=== PATIENT | female | born 1965 | race American Indian/Alaskan Native ===

== ENCOUNTER 2016-09-25 21:28 | Emergency (ER) | payer MEDICARE ==
[2016-09-25] MEDS ORDERED: Ondansetron 4 MG/2 ML SDV IV ONE (21:54)
[2016-09-25] MEDS ORDERED: Morphine 2 MG/ML Syringe IVPUSH ONE (21:54)
--- NOTE | 2016-09-25 21:57 | EDM.PDOC ---
ED HPI GENERAL MEDICAL PROBLEM - General Chief Complaint: Lower Extremity Injury/Pain Stated Complaint: pain ? [id number] Time Seen by Provider: 09/25/16 21:55 Source of Information: Reports: Patient History Limitations: Reports: No Limitations - History of Present Illness INITIAL COMMENTS - FREE TEXT/NARRATIVE: 2 days h/o pain in left stump with fever & chills. 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 Left Knee Pain Score (Numeric/FACES): 7 - Related Data Allergies Allergy/AdvReac Type Severity Reaction Status Date / Time ciprofloxacin [From Cipro] Allergy Hives Verified 09/25/16 21:51 ciprofloxacin HCl Allergy Hives Verified 09/25/16 21:51 [From Cipro] piperacillin sodium Allergy Hives Verified 09/25/16 21:51 [From Zosyn] tazobactam sodium Allergy Hives Verified 09/25/16 21:51 [From Zosyn] Home Meds: Home Meds Pregabalin [Lyrica] 300 mg PO BID 12/05/13 [History] Pioglitazone [Actos] 30 mg PO DAILY 01/01/14 [History] Ibuprofen [Motrin] 800 mg PO Q6H PRN 09/01/14 [History] Past Medical History HEENT History: Reports: None Cardiovascular History: Reports: None Respiratory History: Reports: None Gastrointestinal History: Reports: None Genitourinary History: Reports: None 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 Musculoskeletal History: Reports: Other (See Below) Other Musculoskeletal History: Left Below th e knee Neurological History: Reports: None Psychiatric History: Reports: None Endocrine/Metabolic History: Reports: Diabetes, Type II Hematologic History: Reports: None Immunologic History: Reports: None Oncologic (Cancer) History: Reports: None Dermatologic History: Reports: None - Past Surgical History Musculoskeletal Surgical History: Reports: Amputation Other Musculoskeletal Surgeries/Procedures:: Left BKA Social & Family History - Tobacco Use Smoking Status *Q: Current Every Day Smoker Years of Tobacco use: 10 Packs/Tins Daily: 10 Used Tobacco, but Quit: No Month Tobacco Last Used: august Second Hand Smoke Exposure: No - Caffeine Use Caffeine Use: Reports: Coffee, Soda, Tea - Alcohol Use Days Per Week of Alcohol Use: 0 - Recreational Drug Use Recreational Drug Use: No Drug Use in Last 12 Months: No - Living Situation & Occupation Living situation: Reports: with Family Occupation: Employed Review of Systems - Review of Systems Review Of Systems: ROS reveals no pertinent complaints other than HPI. ED EXAM, GENERAL - Physical Exam Exam: See Below Exam Limited By: No Limitations General Appearance: Alert, WD/WN, Mild Distress, Other (upset) Ears: Hearing Grossly Normal Throat/Mouth: Normal Voice, No Airway Compromise Head: Atraumatic Neck: Non-Tender, Full Range of Motion Respiratory/Chest: No Respiratory Distress Cardiovascular: Regular Rate, Rhythm GI/Abdominal: Soft, Non-Tender Extremities: Other (left stump minimal erythema no lymphangitis, no open sores, mildly tender to palpate) Neurological: Alert, Oriented, Normal Cognition, No Motor/Sensory Deficits Psychiatric: Tearful Skin Exam: Warm, Dry Lymphatic: No Adenopathy Course - Vital Signs Last Recorded V/S: Last Vital Signs Temp 36.5 C 09/25/16 21:39 Pulse 96 09/25/16 21:39 Resp 20 09/25/16 21:39 BP 166/66 H 09/25/16 21:39 Pulse Ox 98 09/25/16 21:39 - Orders/Labs/Meds Orders: Active Orders 24 hr Category Date Time Status CULTURE BLOOD [BC] Stat Lab 09/25/16 22:00 Received Sodium Chloride 0.9% [Normal Saline] 1,000 ml Med 09/25/16 22:00 Active IV ASDIRECTED Medication Orders Sodium Chloride (Normal Saline) 1,000 mls @ 150 mls/hr IV ASDIRECTED MIKE Last Admin: 09/25/16 22:13 Dose: 150 mls/hr Labs: Laboratory Tests 09/25/16 09/25/16 09/25/16 Range/Units 22:00 22:00 22:00 WBC 9.9 (5.0-10.0) 10^3/uL RBC 4.39 (4.2-5.4) 10^6/uL Hgb 12.4 (12.0-16.0) g/dL Hct 39.2 (37.0-47.0) % MCV 89.3 (80-100) fL MCH 28.2 (27.0-34.0) pg MCHC 31.6 L (33.0-35.0) g/dL Plt Count 320 (150-450) 10^3/uL Neut % (Auto) 51.5 (42.2-75.2) % Lymph % (Auto) 37.0 (20.5-50.1) % [place] % (Auto) 9.0 H (2-8) % Eos % (Auto) 2.2 (1.0-3.0) % Baso % (Auto) 0.3 (0.0-1.0) % Sodium 142 (135-145) mmol/L Potassium 3.7 (3.6-5.0) mmol/L Chloride 108 (101-111) mmol/L Carbon Dioxide 23.0 (21.0-31.0) mmol/L Anion Gap 14.7 BUN 7 (7-18) mg/dL Creatinine 0.7 (0.6-1.3) mg/dL Est Cr Clr Drug Dosing 69.83 mL/min Estimated GFR (MDRD) > 60 BUN/Creatinine Ratio 10.00 Glucose 148 H (74-105) mg/dL Lactic Acid 1.4 (0.5-2.2) mmol/L Calcium 8.9 (8.4-10.2) mg/dl Total Bilirubin 0.6 (0.2-1.0) mg/dL AST 28 (10-42) IU/L ALT 34 (10-60) IU/L Alkaline Phosphatase 123 H (42-121) IU/L Total Protein 6.3 L (6.7-8.2) g/dl Albumin 3.5 (3.2-5.5) g/dl Globulin 2.8 Albumin/Globulin Ratio 1.25 Meds: Medications Generic Name Dose Route Start Last Admin Trade Name Freq PRN Reason Stop Dose Admin Sodium Chloride 1,000 mls @ 150 mls/hr 09/25/16 22:00 09/25/16 22:13 Normal Saline IV 150 mls/hr ASDIRECTED MIKE Administration Discontinued Medications Generic Name Dose Route Start Last Admin Trade Name Freq PRN Reason Stop Dose Admin Clindamycin Phosphate 900 mg/ 106 mls @ 200 mls/hr 09/25/16 22:50 09/25/16 23 :04 Sodium Chloride IV 09/25/16 23:21 200 mls/hr ONETIME ONE Administration Morphine Sulfate 2 mg 09/25/16 21:54 09/25/16 22:15 Morphine IVPUSH 09/25/16 21:55 2 mg ONETIME ONE Administration Ondansetron HCl 4 mg 09/25/16 21:54 09/25/16 22:15 Zofran IV 09/25/16 21:55 4 mg ONETIME ONE Administration Departure - Departure Time of Disposition: 23:43 Disposition: Home, Self-Care 01 Condition: Good Clinical Impression: Amputation stump infection - Discharge Information Instructions: Stump and Prosthesis Care Forms: ED Department Discharge Additional Instructions: 1) continue home meds 2) follow up at clinic or [facility] if there is any change or concern rx given; clindamycin 150mg qid x 40 vicodin 5/325mg bid prn x 12 - My Orders Last 24 Hours: My Active Orders 09/25/16 22:00 CULTURE BLOOD [BC] Stat Sodium Chloride 0.9% [Normal Saline] 1,000 ml IV ASDIRECTED - Assessment/Plan Last 24 Hours: My Active Orders 09/25/16 22:00 CULTURE BLOOD [BC] Stat Sodium Chloride 0.9% [Normal Saline] 1,000 ml IV ASDIRECTED
[2016-09-25] MEDS ORDERED: Sodium Chloride 0.9% 1,000 ML IV SCH (22:00)
[2016-09-25 22:37] LABS: CHLORIDE,CL 108 mmol/L (101-111); SODIUM,NA 142 mmol/L (135-145)
[2016-09-25] MEDS ORDERED: Clindamycin Phosphate 900 MG in Sodium Chloride 0.9% 100 ML IV ONE (22:50)
[2016-09-26 01:12] VITALS: BP 120/60
== END 2016-09-25 23:59 | disposition home or self-care (01) ==
LOC: EDBD → DL.ED 21:28
DX: T87.44 Infection of amputation stump, left lower extremity (principal); E11.9 Type 2 diabetes mellitus without complications; F17.210 Nicotine dependence, cigarettes, uncomplicated; Z79.899 Other long term (current) drug therapy; Z88.1 Allergy status to other antibiotic agents; Z88.8 Allergy status to other drugs, medicaments and biological substances; Z79.84 Long term (current) use of oral hypoglycemic drugs
CPT/HCPCS: 36415; 80053; 83605; 85025; 87040; 96365; 96367; 96375; 99283; J2270; J2405; J7030; J7050; 99284; S0077

== ENCOUNTER 2016-10-14 14:45 | Emergency (ER) | payer MEDICARE, OTHER, MEDICAID ==
[2016-10-14 15:11] VITALS: BP 159/67
== END 2016-10-14 15:25 | disposition left against medical advice (07) ==
LOC: EDBD → DL.ED 14:45
DX: Z53.21 Procedure and treatment not carried out due to patient leaving prior to being seen by health care provider (principal)

== ENCOUNTER 2016-10-21 21:49 | Emergency (ER) | payer MEDICAID, MEDICARE, OTHER ==
[2016-10-21] MEDS ORDERED: HYDROmorphone 1 MG/ML Syringe IVPUSH ONE (22:33)
[2016-10-21] MEDS ORDERED: Ondansetron 4 MG/2 ML SDV IV ONE (22:33)
[2016-10-21 22:42] LABS: CHLORIDE,CL 109 mmol/L (101-111); SODIUM,NA 143 mmol/L (135-145)
[2016-10-22] MEDS ORDERED: Amoxicillin/Clavulanate K 875-125 MG Tab PO ONE (00:30)
--- NOTE | 2016-10-22 00:30 | EDM.PDOC ---
ED HPI GENERAL MEDICAL PROBLEM - General Chief Complaint: General Stated Complaint: DIABETIC PROBLEMS,COMING BY AMBULANCE Time Seen by Provider: 10/21/16 21:57 Source of Information: Reports: Patient History Limitations: Reports: No Limitations - History of Present Illness INITIAL COMMENTS - FREE TEXT/NARRATIVE: c/o pain to left stump. 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 Has 2 pressure ulcers from prosthesis not fitting correctly with increase in weight. Notes still wearing prothesis. and walking. Has increased pain.Was seen in clinic today and appointment scheduled with orthotics for refitting. [place] chilled tonight. 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 Lower Knee Pain Score (Numeric/FACES): 7 - Related Data Allergies Allergy/AdvReac Type Severity Reaction Status Date / Time ciprofloxacin [From Cipro] Allergy Hives Verified 10/21/16 22:09 ciprofloxacin HCl Allergy Hives Verified 10/21/16 22:09 [From Cipro] piperacillin sodium Allergy Hives Verified 10/21/16 22:09 [From Zosyn] tazobactam sodium Allergy Hives Verified 10/21/16 22:09 [From Zosyn] Home Meds: Home Meds Pregabalin [Lyrica] 300 mg PO BID 12/05/13 [History] Pioglitazone [Actos] 30 mg PO DAILY 01/01/14 [History] Ibuprofen [Motrin] 800 mg PO Q6H PRN 09/01/14 [History] Past Medical History HEENT History: Reports: None Cardiovascular History: Reports: None Respiratory History: Reports: None Gastrointestinal History: Reports: None Genitourinary History: Reports: None 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 Musculoskeletal History: Reports: Other (See Below) Other Musculoskeletal History: Left Below th e knee Neurological History: Reports: None Psychiatric History: Reports: None Endocrine/Metabolic History: Reports: Diabetes, Type II Hematologic History: Reports: None Immunologic History: Reports: None Oncologic (Cancer) History: Reports: None Dermatologic History: Reports: None - Past Surgical History Musculoskeletal Surgical History: Reports: Amputation Other Musculoskeletal Surgeries/Procedures:: Left BKA Social & Family History - Tobacco Use Smoking Status *Q: Current Every Day Smoker Years of Tobacco use: 18 Packs/Tins Daily: 6 Used Tobacco, but Quit: No Month Tobacco Last Used: august Second Hand Smoke Exposure: No - Caffeine Use Caffeine Use: Reports: Coffee, Soda, Tea - Alcohol Use Days Per Week of Alcohol Use: 0 - Recreational Drug Use Recreational Drug Use: No Drug Use in Last 12 Months: No - Living Situation & Occupation Living situation: Reports: with Family Occupation: Employed ED ROS GENERAL - Review of Systems Review Of Systems: See Below Constitutional: Reports: Chills HEENT: Reports: No Symptoms Respiratory: Reports: No Symptoms Cardiovascular: Reports: No Symptoms GI/Abdominal: Reports: No Symptoms : Reports: No Symptoms Musculoskeletal: Reports: Leg Pain (left BKA) Skin: Reports: Wound (pressure ulcer at base of stump another starting above knee) ED EXAM, GENERAL - Physical Exam Exam: See Below Exam Limited By: No Limitations General Appearance: Alert, Anxious, Mild Distress, Obese Eye Exam: Bilateral Eye: EOMI Ears: Normal External Exam Nose: Normal Inspection Throat/Mouth: Normal Inspection, Normal Voice Head: Atraumatic, Normocephalic Neck: Normal Inspection. No: Lymphadenopathy (L), Lymphadenopathy (R) Respiratory/Chest: No Respiratory Distress, Lungs Clear, Normal Breath Sounds Cardiovascular: Normal Peripheral Pulses, Regular Rate, Rhythm GI/Abdominal: Normal Bowel Sounds, Soft, Non-Tender Extremities: Leg Pain (BKA left. dime size pressure ulcer base of stump, clean no drainage mild erythematous base, mild swelling to stump. 3mm pressure ulcer to later edge above knee at edge of prothesis. ). No: Normal Inspection Neurological: Alert, Oriented, Normal Cognition, No Motor/Sensory Deficits Skin Exam: Warm, Dry, Erythema (left BKA), Increased Warmth (slight), Wound/ Incision (above). No: Intact, Pallor Course - Vital Signs Last Recorded V/S: Last Vital Signs Temp 96.4 F 10/22/16 00:51 Pulse 70 10/22/16 00:51 Resp 18 10/22/16 00:51 BP 130/59 L 10/22/16 00:51 Pulse Ox 98 10/22/16 00:51 - Orders/Labs/Meds Labs: Laboratory Tests 10/21/16 10/21/16 10/21/16 Range/Units 22:10 22:10 22:10 WBC 9.2 (5.0-10.0) 10^3/uL RBC 4.36 (4.2-5.4) 10^6/uL Hgb 12.4 (12.0-16.0) g/dL Hct 38.5 (37.0-47.0) % MCV 88.3 (80-100) fL MCH 28.4 (27.0-34.0) pg MCHC 32.2 L (33.0-35.0) g/dL Plt Count 334 (150-450) 10^3/uL Neut % (Auto) 50.5 (42.2-75.2) % Lymph % (Auto) 39.0 (20.5-50.1) % [place] % (Auto) 7.8 (2-8) % Eos % (Auto) 2.5 (1.0-3.0) % Baso % (Auto) 0.2 (0.0-1.0) % Sodium 143 (135-145) mmol/L Potassium 3.6 (3.6-5.0) mmol/L Chloride 109 (101-111) mmol/L Carbon Dioxide 23.0 (21.0-31.0) mmol/L Anion Gap 14.6 BUN 8 (7-18) mg/dL Creatinine 0.6 (0.6-1.3) mg/dL Est Cr Clr Drug Dosing 80.57 mL/min Estimated GFR (MDRD) > 60 BUN/Creatinine Ratio 13.33 Glucose 107 H (74-105) mg/dL Lactic Acid 1.0 (0.5-2.2) mmol/L Calcium 8.8 (8.4-10.2) mg/dl Total Bilirubin 0.5 (0.2-1.0) mg/dL AST 28 (10-42) IU/L ALT 29 (10-60) IU/L Alkaline Phosphatase 111 (42-121) IU/L C-Reactive Protein (0.0-1.3) mg/dL Total Protein 7.1 (6.7-8.2) g/dl Albumin 3.7 (3.2-5.5) g/dl Globulin 3.4 Albumin/Globulin Ratio 1.09 Amylase 49 (28-100) U/L Lipase 31 (22-51) U/L Urine Color (YELLOW) Urine Appearance (CLEAR) Urine pH (5.0-9.0) Ur Specific [place] (1.005-1.030) Urine Protein (NEGATIVE) Urine Glucose (UA) (NEGATIVE) Urine Ketones (NEGATIVE) Urine Occult Blood (NEGATIVE) Urine Nitrite (NEGATIVE) Urine Bilirubin (NEGATIVE) Urine Urobilinogen (0.2-1.0) mg/dL Ur Leukocyte Esterase (NEGATIVE) Urine RBC /HPF Urine WBC (0-5/HPF) /HPF Ur Epithelial Cells /HPF Urine Bacteria (0-FEW/HPF) /HPF Urine Mucus /LPF Urine Trichomonas (0/HPF) /HPF 10/21/16 10/21/16 Range/Units 22:10 22:27 WBC (5.0-10.0) 10^3/uL RBC (4.2-5.4) 10^6/uL Hgb (12.0-16.0) g/dL Hct (37.0-47.0) % MCV (80-100) fL MCH (27.0-34.0) pg MCHC (33.0-35.0) g/dL Plt Count (150-450) 10^3/uL Neut % (Auto) (42.2-75.2) % Lymph % (Auto) (20.5-50.1) % [place] % (Auto) (2-8) % Eos % (Auto) (1.0-3.0) % Baso % (Auto) (0.0-1.0) % Sodium (135-145) mmol/L Potassium (3.6-5.0) mmol/L Chloride (101-111) mmol/L Carbon Dioxide (21.0-31.0) mmol/L Anion Gap BUN (7-18) mg/dL Creatinine (0.6-1.3) mg/dL Est Cr Clr Drug Dosing mL/min Estimated GFR (MDRD) BUN/Creatinine Ratio Glucose (74-105) mg/dL Lactic Acid (0.5-2.2) mmol/L Calcium (8.4-10.2) mg/dl Total Bilirubin (0.2-1.0) mg/dL AST (10-42) IU/L ALT (10-60) IU/L Alkaline Phosphatase (42-121) IU/L C-Reactive Protein 0.8 (0.0-1.3) mg/dL Total Protein (6.7-8.2) g/dl Albumin (3.2-5.5) g/dl Globulin Albumin/Globulin Ratio Amylase (28-100) U/L Lipase (22-51) U/L Urine Color Yellow (YELLOW) Urine Appearance Slightly cloudy (CLEAR) Urine pH 6.0 (5.0-9.0) Ur Specific [place] 1.010 (1.005-1.030) Urine Protein Negative (NEGATIVE) Urine Glucose (UA) Negative (NEGATIVE) Urine Ketones Negative (NEGATIVE) Urine Occult Blood Negative (NEGATIVE) Urine Nitrite Negative (NEGATIVE) Urine Bilirubin Negative (NEGATIVE) Urine Urobilinogen 0.2 (0.2-1.0) mg/dL Ur Leukocyte Esterase Moderate H (NEGATIVE) Urine RBC 0-5 /HPF Urine WBC 10-20 H (0-5/HPF) /HPF Ur Epithelial Cells Few /HPF Urine Bacteria Rare (0-FEW/HPF) /HPF Urine Mucus Few H /LPF Urine Trichomonas Present H (0/HPF) /HPF Meds: Medications Discontinued Medications Generic Name Dose Route Start Last Admin Trade Name Freq PRN Reason Stop Dose Admin Amoxicillin/Clavulanate Potassium 1 tab 10/22/16 00:30 10/22/16 00:47 Augmentin 875 Mg/125 Mg PO 10/22/16 00:31 1 tab ONETIME ONE Administration Hydromorphone HCl 1 mg 10/21/16 22:33 10/21/16 22:47 Dilaudid IVPUSH 10/21/16 22:34 1 mg ONETIME ONE Administration Ondansetron HCl 4 mg 10/21/16 22:33 10/21/16 22:47 Zofran IV 10/21/16 22:34 4 mg ONETIME ONE Administration Oxycodone/Acetaminophen Confirm 10/22/16 00:43 10/22/16 00:48 Percocet 325-5 Mg Administered 10/22/16 00:44 Not Given Dose 2 tab .ROUTE .STK-MED ONE Oxycodone/Acetaminophen 2 tab 10/22/16 00:43 Percocet 325-5 Mg PO 10/22/16 00:44 .STK-MED ONE Departure - Departure Time of Disposition: 00:19 Disposition: Home, Self-Care 01 Condition: Fair Clinical Impression: Pressure ulcer of left leg, stage 2, UTI, Urinary tract infectious disease, Stump pain - Discharge Information Instructions: Stump and Prosthesis Care, How to Prevent Pressure Injuries Forms: ED Department Discharge Additional Instructions: clinic follow up as scheduled percocet 5/325 one every 6 hours as needed for severe pain augmentin 875 one twice daily for one week for UTI avoid pressure on stump area. use walker or crutches when able until prosthesis re fitted
[2016-10-22] MEDS ORDERED: Acetaminophen/oxyCODONE 325-5 MG Tab ONE (00:43)
[2016-10-22] MEDS ORDERED: Acetaminophen/oxyCODONE 325-5 MG Tab PO ONE (00:43)
[2016-10-22 01:00] VITALS: BP 130/59
== END 2016-10-22 00:51 | disposition home or self-care (01) ==
LOC: EDBD → DL.ED 21:49
DX: L89.892 Pressure ulcer of other site, stage 2 (principal); N39.0 Urinary tract infection, site not specified; E11.9 Type 2 diabetes mellitus without complications; Z89.512 Acquired absence of left leg below knee; F17.210 Nicotine dependence, cigarettes, uncomplicated; Z79.899 Other long term (current) drug therapy; Z88.1 Allergy status to other antibiotic agents; Z88.8 Allergy status to other drugs, medicaments and biological substances
CPT/HCPCS: 36415; 80053; 81001; 82150; 83605; 83690; 85025; 86140; 87040; 87070; 87077; 87086; 87088; 96374; 96375; 99284; A9270; J1170; J2405

== ENCOUNTER 2017-04-11 16:45 | Emergency (ER) | payer MEDICAID, MEDICARE ==
[2017-04-11 18:20] VITALS: BP 152/67
--- NOTE | 2017-04-11 19:30 | EDM.PDOC ---
ED HPI GENERAL MEDICAL PROBLEM - General Chief Complaint: Lower Extremity Injury/Pain Stated Complaint: SICK [id number] Time Seen by Provider: 04/11/17 19:26 Source of Information: Reports: Patient History Limitations: Reports: No Limitations - History of Present Illness INITIAL COMMENTS - FREE TEXT/NARRATIVE: twisted last night and it's her good leg since the other one has a prosthesis, also been having F/C today but refused to have flu swab since it goes into her nose and she doesn't like it. Right Leg Pain Score (Numeric/FACES): 8 - Related Data Allergies Allergy/AdvReac Type Severity Reaction Status Date / Time ciprofloxacin [From Cipro] Allergy Hives Verified 04/11/17 18:12 ciprofloxacin HCl Allergy Hives Verified 04/11/17 18:12 [From Cipro] piperacillin sodium Allergy Hives Verified 04/11/17 18:12 [From Zosyn] tazobactam sodium Allergy Hives Verified 04/11/17 18:12 [From Zosyn] Home Meds: Home Meds Pregabalin [Lyrica] 300 mg PO BID 12/05/13 [History] Pioglitazone [Actos] 30 mg PO DAILY 01/01/14 [History] Ibuprofen [Motrin] 800 mg PO Q6H PRN 09/01/14 [History] metFORMIN [Glucophage XR] 500 mg PO DAILY 04/11/17 [History] Past Medical History HEENT History: Reports: None Cardiovascular History: Reports: None Respiratory History: Reports: None Gastrointestinal History: Reports: None Genitourinary History: Reports: None 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 Musculoskeletal History: Reports: Other (See Below) Other Musculoskeletal History: Left Below th e knee Neurological History: Reports: None Psychiatric History: Reports: None Endocrine/Metabolic History: Reports: Diabetes, Type II Hematologic History: Reports: None Immunologic History: Reports: None Oncologic (Cancer) History: Reports: None Dermatologic History: Reports: None - Past Surgical History Musculoskeletal Surgical History: Reports: Amputation Other Musculoskeletal Surgeries/Procedures:: Left BKA Social & Family History - Family History Family Medical History: Noncontributory - Tobacco Use Smoking Status *Q: Current Every Day Smoker Years of Tobacco use: 15 Packs/Tins Daily: 0.2 Used Tobacco, but Quit: No Month Tobacco Last Used: august Second Hand Smoke Exposure: No - Caffeine Use Caffeine Use: Reports: Coffee, Soda - Alcohol Use Days Per Week of Alcohol Use: 0 - Recreational Drug Use Recreational Drug Use: No Drug Use in Last 12 Months: No - Living Situation & Occupation Living situation: Reports: with Family Occupation: Employed Review of Systems - Review of Systems Review Of Systems: ROS reveals no pertinent complaints other than HPI. ED EXAM, GENERAL - Physical Exam Exam: See Below Exam Limited By: No Limitations General Appearance: Alert, WD/WN, Mild Distress, Moderate Distress, Other ( tearful) Eye Exam: Bilateral Eye: PERRL (pupils ess ER @ 4mm) Ears: Hearing Grossly Normal Throat/Mouth: Normal Voice, No Airway Compromise Head: Atraumatic Neck: Non-Tender, Full Range of Motion Respiratory/Chest: No Respiratory Distress Cardiovascular: Regular Rate, Rhythm GI/Abdominal: Soft, Non-Tender Neurological: Alert, Oriented, Normal Cognition, Other (left prosthesis) Psychiatric: Flat Affect, Tearful Skin Exam: Warm, Dry, Normal Color Lymphatic: No Adenopathy Course - Vital Signs Last Recorded V/S: Last Vital Signs Temp 36.3 C 04/11/17 18:15 Pulse 84 04/11/17 18:15 Resp 18 04/11/17 18:15 BP 152/67 H 04/11/17 18:15 Pulse Ox 99 04/11/17 18:15 - Orders/Labs/Meds Orders: Active Orders 24 hr Category Date Time Status Ankle Min 3V Rt [CR] Urgent Exams 04/11/17 19:25 Taken Meds: Medications Discontinued Medications Generic Name Dose Route Start Last Admin Trade Name Freq PRN Reason Stop Dose Admin Hydrocodone Bitart/Acetaminophen 1 tab 04/11/17 20:05 [place] 325-10 Mg PO 04/11/17 20:06 ONETIME ONE - Re-Assessments/Exams Free Text/Narrative Re-Assessment/Exam: 04/11/17 20:06 results discussed with pt. Departure - Departure Time of Disposition: 20:07 Disposition: Home, Self-Care 01 Condition: Good Clinical Impression: Ankle sprain Qualifiers: Encounter type: initial encounter Involved ligament of ankle: tibiofibular ligament Laterality: right Qualified Code(s): S93.431A - Sprain of tibiofibular ligament of right ankle, initial encounter - Discharge Information Instructions: Ankle Sprain, [id number] Forms: ED Department Discharge Additional Instructions: 1) wear [place] for comfort 2) elevate leg as much as possible next 3 to 4 days 3) see clinic for MRI SCAN if not significantly better by Wednesday rx given; vicodin 5/325mg bid prn x 12 - My Orders Last 24 Hours: My Active Orders 04/11/17 19:25 Ankle Min 3V Rt [CR] Urgent - Assessment/Plan Last 24 Hours: My Active Orders 04/11/17 19:25 Ankle Min 3V Rt [CR] Urgent
[2017-04-11] MEDS ORDERED: Acetaminophen/HYDROcodone 325-10 MG Tab PO ONE (20:05)
== END 2017-04-11 20:25 | disposition home or self-care (01) ==
LOC: DL.ED 16:45 → EDBD 16:45 → DL.ED 20:25
DX: S93.431A Sprain of tibiofibular ligament of right ankle, initial encounter (principal); E11.9 Type 2 diabetes mellitus without complications; F17.210 Nicotine dependence, cigarettes, uncomplicated; Z88.1 Allergy status to other antibiotic agents; Z88.8 Allergy status to other drugs, medicaments and biological substances; Z79.899 Other long term (current) drug therapy; Z79.84 Long term (current) use of oral hypoglycemic drugs; X50.1XXA Overexertion from prolonged static or awkward postures, initial encounter
CPT/HCPCS: 73610; 99283; A9270

== ENCOUNTER 2017-04-21 17:17 | Emergency (ER) | payer MEDICARE, MEDICAID ==
[2017-04-21 17:43] VITALS: BP 159/56
--- NOTE | 2017-04-21 19:17 | EDM.PDOC ---
ED HPI GENERAL MEDICAL PROBLEM - General Chief Complaint: Upper Extremity Injury/Pain Stated Complaint: FELL AND HURT SHOULDER, [id number] Time Seen by Provider: 04/21/17 19:10 Source of Information: Reports: Patient History Limitations: Reports: No Limitations - History of Present Illness INITIAL COMMENTS - FREE TEXT/NARRATIVE: C/O severe pain noted,slipped and fell on ice around 330 today. Pain left upper arm and shoulder, difficult to move arm. Left knee pain from landing on knee and prosthesis. Also pain right ankle. Reports previous injury to ankle and was told needed pins but did not follow up as would have limited being able to get around since prosthesis on other extremity. 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: Musculoskeletal History: Reports: Amputation Endocrine/Metabolic History: Reports: Diabetes, Type I - Past Surgical History Musculoskeletal Surgical History: Reports: Amputation Social & Family History - Tobacco Use Smoking Status *Q: Unknown Ever Smoked Second Hand Smoke Exposure: No - Caffeine Use Caffeine Use: Reports: None Review of Systems - Review of Systems Review Of Systems: See Below Constitutional: Reports: No Symptoms Eyes: Reports: No Symptoms Ears: Reports: No Symptoms Nose: Reports: No Symptoms Mouth/Throat: Reports: No Symptoms Respiratory: Reports: No Symptoms Cardiovascular: Reports: No Symptoms GI/Abdominal: Reports: No Symptoms Genitourinary: Reports: No Symptoms Musculoskeletal: Reports: Shoulder Pain (left), Arm Pain (left upper), Leg Pain (left below knee), Joint Pain (right ankle) Skin: Reports: No Symptoms Neurological: Reports: No Symptoms ED EXAM, GENERAL - Physical Exam Exam: See Below Exam Limited By: No Limitations General Appearance: Alert, Mild Distress Eye Exam: Bilateral Eye: EOMI Ears: Normal External Exam Nose: Normal Inspection Throat/Mouth: Normal Inspection, Normal Voice Head: Atraumatic, Normocephalic Neck: Normal Inspection, Full Range of Motion. No: Tender Lateral, Tender Midline Respiratory/Chest: No Respiratory Distress, Lungs Clear, Normal Breath Sounds Cardiovascular: Normal Peripheral Pulses, Regular Rate, Rhythm Peripheral Pulses: 2+: Radial (L) GI/Abdominal: Soft Back Exam: No: Paraspinal Tenderness, Vertebral Tenderness Extremities: Arm Pain (limited ROM, no gross deformity, tender to palpation upper arm and shoulder, ), Leg Pain (right ankle tender medially, no deformity, no bruising minimal swelling), Limited Range of Motion (l upper arm/ shoulder), Other (light bruise medial left knee above prosthesis, no gross deformity right knee.). No: Normal Range of Motion Neurological: Alert, Oriented, Normal Cognition Psychiatric: Normal Affect Skin Exam: Warm, Dry, Intact, Normal Color Course - Vital Signs Last Recorded V/S: Last Vital Signs Temp 97.7 F 04/21/17 17:42 Pulse 86 04/21/17 17:42 Resp 18 04/21/17 17:42 BP 159/56 H 04/21/17 17:42 Pulse Ox 97 04/21/17 17:42 - Orders/Labs/Meds Meds: Medications Discontinued Medications Generic Name Dose Route Start Last Admin Trade Name Alisa PRN Reason Stop Dose Admin Hydrocodone Bitart/Acetaminophen Confirm 04/21/17 21:11 [place] 325-10 Mg Administered 04/21/17 21:12 Dose 2 tab .ROUTE .STK-MED ONE Oxycodone/Acetaminophen 1 tab 04/21/17 19:48 04/21/17 20:17 Percocet 325-5 Mg PO 04/21/17 19:49 1 tab ONETIME ONE Administration - Radiology Interpretation Free Text/Narrative:: right knee negative right ankle negative left shoulder; negaive left humerus: Questionable avulsion fracture of greater tuberosity CT left shoulder fractureof humeral head involving greater tuberosity - Re-Assessments/Exams Free Text/Narrative Re-Assessment/Exam: 04/21/17 19:56 Patient reports birthdate as [birth year], Provides ID that notes birthdate as . Departure - Departure Time of Disposition: 21:03 Disposition: Home, Self-Care 01 Condition: Fair Clinical Impression: Fracture of humeral head, closed Qualifiers: Encounter type: initial encounter Laterality: left Qualified Code(s): S42.292A - Other displaced fracture of upper end of left humerus, initial encounter for closed fracture - Discharge Information Instructions: How to Use a Sling, [id number], Shoulder Pain, [id number] Forms: ED Department Discharge Care Plan Goals: hydrocodone 10/325 one every 6 hours as needed for severe pain may take ibuprofen 600mg with food every 6 hours as needed moderate pain wear sling Ortho follow up in clinic Wednesday at [facility], call tomorrow to get appointment with Dr. Hill [phone] ice pack jared spencer
[2017-04-21] MEDS ORDERED: Acetaminophen/oxyCODONE 325-5 MG Tab PO ONE (19:48)
[2017-04-21] MEDS ORDERED: Acetaminophen/HYDROcodone 325-10 MG Tab ONE (21:11)
== END 2017-04-21 21:23 | disposition home or self-care (01) ==
LOC: DL.ED 17:17 → EDUNIT# 17:17 → DL.ED 21:23
DX: S42.292A Other displaced fracture of upper end of left humerus, initial encounter for closed fracture (principal); E10.9 Type 1 diabetes mellitus without complications; Z88.8 Allergy status to other drugs, medicaments and biological substances; Z79.84 Long term (current) use of oral hypoglycemic drugs; W00.9XXA Unspecified fall due to ice and snow, initial encounter
CPT/HCPCS: 73030; 73060; 73200; 73560; 73610; 99284; A9270

== ENCOUNTER 2017-08-05 20:12 | Emergency (ER) | payer MEDICARE, MEDICAID ==
[2017-08-05 20:25] VITALS: BP 133/58
[2017-08-05] MEDS ORDERED: Clindamycin HCl 150 MG Cap PO ONE (21:42)
[2017-08-05] MEDS ORDERED: Acetaminophen/HYDROcodone 325-10 MG Tab PO ONE (21:42)
--- NOTE | 2017-08-05 21:51 | EDM.PDOC ---
ED HPI GENERAL MEDICAL PROBLEM - General Chief Complaint: Lower Extremity Injury/Pain Stated Complaint: [id number] INFECTION IN TOES Time Seen by Provider: 08/05/17 21:45 Source of Information: Reports: Patient History Limitations: Reports: No Limitations - History of Present Illness INITIAL COMMENTS - FREE TEXT/NARRATIVE: c/o pain in toes of right foot past few days and not getting better. has appt' with test eng in few weeks. also been having women problems was being f/u @ [facility] with miri Canas but she left. Right 1-[place]ux Pain Score (Numeric/FACES): 8 - Related Data Allergies Allergy/AdvReac Type Severity Reaction Status Date / Time ciprofloxacin [From Cipro] Allergy Hives Verified 08/05/17 20:25 ciprofloxacin HCl Allergy Hives Verified 04/11/17 18:12 [From Cipro] piperacillin [From Zosyn] Allergy Cannot Unverified 04/21/17 17:40 Remember piperacillin sodium Allergy Hives Verified 08/05/17 20:25 [From Zosyn] tazobactam [From Zosyn] Allergy Cannot Unverified 04/21/17 17:40 Remember tazobactam sodium Allergy Hives Verified 08/05/17 20:25 [From Zosyn] Home Meds: Home Meds Pregabalin [Lyrica] 300 mg PO BID 12/05/13 [History] Pioglitazone [Actos] 30 mg PO DAILY 01/01/14 [History] Ibuprofen [Motrin] 800 mg PO Q6H PRN 09/01/14 [History] metFORMIN [Glucophage] 500 mg PO BID 04/21/17 [History] Past Medical History HEENT History: Reports: None Cardiovascular History: Reports: None Respiratory History: Reports: None Gastrointestinal History: Reports: None Genitourinary History: Reports: None [employer]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: Musculoskeletal History: Reports: Amputation Other Musculoskeletal History: Left Below th e knee Neurological History: Reports: None Psychiatric History: Reports: None Endocrine/Metabolic History: Reports: Diabetes, Type I Hematologic History: Reports: None Immunologic History: Reports: None Oncologic (Cancer) History: Reports: None Dermatologic History: Reports: None - Past Surgical History Musculoskeletal Surgical History: Reports: Amputation Social & Family History - Family History Family Medical History: Noncontributory - Tobacco Use Smoking Status *Q: Current Every Day Smoker Years of Tobacco use: 10 Packs/Tins Daily: 0.2 Second Hand Smoke Exposure: No - Caffeine Use Caffeine Use: Reports: None - Recreational Drug Use Recreational Drug Use: No - Living Situation & Occupation Living situation: Reports: with Family Occupation: Employed Review of Systems - Review of Systems Review Of Systems: ROS reveals no pertinent complaints other than HPI. ED EXAM, GENERAL - Physical Exam Exam: See Below Exam Limited By: No Limitations General Appearance: Alert, WD/WN, Mild Distress, Other (distraught) Ears: Hearing Grossly Normal Throat/Mouth: Normal Voice, No Airway Compromise Head: Atraumatic Neck: Non-Tender, Full Range of Motion Respiratory/Chest: No Respiratory Distress Cardiovascular: Regular Rate, Rhythm GI/Abdominal: Soft, Non-Tender Extremities: Other (right toes mildly inflammed no cellulitis/lymphangitis, nails deformed) Neurological: Alert, Oriented, Normal Cognition, Normal Gait, No Motor/Sensory Deficits Psychiatric: Flat Affect, Tearful Skin Exam: Warm, Dry, Normal Color Lymphatic: No Adenopathy Course - Vital Signs Last Recorded V/S: Last Vital Signs Temp 36.4 C 08/05/17 20:20 Pulse 112 H 08/05/17 20:20 Resp 18 08/05/17 20:20 BP 133/58 L 08/05/17 20:20 Pulse Ox 96 08/05/17 20:20 - Orders/Labs/Meds Orders: Active Orders 24 hr Category Date Time Status Acetaminophen/HYDROcodone [[place] 325-10 MG] Med 08/05/17 21:42 Once 1 tab PO ONETIME ONE Clindamycin HCl [Cleocin] Med 08/05/17 21:42 Once 150 mg PO ONETIME ONE Medication Orders Hydrocodone Bitart/Acetaminophen ([place] 325-10 Mg) 1 tab PO ONETIME ONE Stop: 08/05/17 21:43 Clindamycin HCl (Cleocin) 150 mg PO ONETIME ONE Stop: 08/05/17 21:43 Meds: Medications Generic Name Dose Route Start Last Admin Trade Name Freq PRN Reason Stop Dose Admin Hydrocodone Bitart/Acetaminophen 1 tab 08/05/17 21:42 [place] 325-10 Mg PO 08/05/17 21:43 ONETIME ONE Clindamycin HCl 150 mg 08/05/17 21:42 Cleocin PO 08/05/17 21:43 ONETIME ONE Departure - Departure Time of Disposition: 21:50 Disposition: Home, Self-Care 01 Condition: Good Clinical Impression: Toe infection - Discharge Information Referrals: Sarah Lambert MD [Primary Care Provider] - Additional Instructions: 1) see clinic tomorrow for female problem 2) see test eng for toe nail problem rx given; clindamycin 150mg qid x 40 - My Orders Last 24 Hours: My Active Orders 08/05/17 21:42 Acetaminophen/HYDROcodone [[place] 325-10 MG] 1 tab PO ONETIME ONE Clindamycin HCl [Cleocin] 150 mg PO ONETIME ONE - Assessment/Plan Last 24 Hours: My Active Orders 08/05/17 21:42 Acetaminophen/HYDROcodone [[place] 325-10 MG] 1 tab PO ONETIME ONE Clindamycin HCl [Cleocin] 150 mg PO ONETIME ONE
== END 2017-08-05 21:56 | disposition home or self-care (01) ==
LOC: DL.ED 20:12
DX: L08.9 Local infection of the skin and subcutaneous tissue, unspecified (principal); E10.9 Type 1 diabetes mellitus without complications; F17.210 Nicotine dependence, cigarettes, uncomplicated; Z88.8 Allergy status to other drugs, medicaments and biological substances; Z88.1 Allergy status to other antibiotic agents
CPT/HCPCS: 99283; A9270

== ENCOUNTER 2017-10-02 20:52 | Observation (INO) | payer MEDICARE, MEDICAID ==
[2017-10-02] MEDS ORDERED: Meclizine 12.5 MG Tab PO ONE (20:57)
[2017-10-02] MEDS ORDERED: Ondansetron 4 MG/2 ML SDV IV ONE (20:57)
--- NOTE | 2017-10-02 21:03 | EDM.PDOC ---
ED HPI GENERAL MEDICAL PROBLEM - General Chief Complaint: Syncope Stated Complaint: FAINTING [id number] Time Seen by Provider: 10/02/17 20:59 Source of Information: Reports: Patient History Limitations: Reports: No Limitations - History of Present Illness INITIAL COMMENTS - FREE TEXT/NARRATIVE: c/o few days h/o passing out all the time dizzy light headed things feel like spinning, on-off chest tightness, denies HEARN. family states came home found pt lying in seat c/o passing out and was unsteady and had to help her out to car. Left Arm Pain Score (Numeric/FACES): 7 - Related Data Allergies Allergy/AdvReac Type Severity Reaction Status Date / Time ciprofloxacin [From Cipro] Allergy Severe Hives Verified 10/02/17 21:27 ciprofloxacin HCl Allergy Severe Hives Verified 10/02/17 21:27 [From Cipro] piperacillin sodium Allergy Severe Hives Verified 10/02/17 21:27 [From Zosyn] tazobactam sodium Allergy Severe Hives Verified 10/02/17 21:27 [From Zosyn] piperacillin [From Zosyn] Allergy Unknown Cannot Unverified 10/02/17 21:27 Remember tazobactam [From Zosyn] Allergy Unknown Cannot Unverified 10/02/17 21:27 Remember Home Meds: Home Meds Pregabalin [Lyrica] 300 mg PO BID 12/05/13 [History] Pioglitazone [Actos] 30 mg PO DAILY 01/01/14 [History] Ibuprofen [Motrin] 800 mg PO Q6H PRN 09/01/14 [History] metFORMIN [Glucophage] 500 mg PO BID 04/21/17 [History] Past Medical History HEENT History: Reports: None Cardiovascular History: Reports: None Respiratory History: Reports: None Gastrointestinal History: Reports: None Genitourinary History: Reports: 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: Musculoskeletal History: Reports: Amputation Other Musculoskeletal History: Left Below th e knee Neurological History: Reports: None Psychiatric History: Reports: None Endocrine/Metabolic History: Reports: Diabetes, Type I Hematologic History: Reports: None Immunologic History: Reports: None Oncologic (Cancer) History: Reports: None Dermatologic History: Reports: None - Past Surgical History Musculoskeletal Surgical History: Reports: Amputation Social & Family History - Family History Family Medical History: Noncontributory - Caffeine Use Caffeine Use: Reports: None - Living Situation & Occupation Living situation: Reports: with Family Occupation: Employed ED ROS GENERAL - Review of Systems Review Of Systems: ROS reveals no pertinent complaints other than HPI. - Physical Exam Exam: See Below Exam Limited By: No Limitations General Appearance: Alert, WD/WN, Mild Distress, Other (dsitraught) Eye Exam: Bilateral Eye: PERRL (pupils ess ER @ 4mm) Ears: Hearing Grossly Normal Throat/Mouth: Normal Voice, No Airway Compromise Head Exam: Atraumatic Neck: Non-Tender, Full Range of Motion Respiratory/Chest: No Respiratory Distress Cardiovascular: Regular Rate, Rhythm GI/Abdominal: Soft, Non-Tender Neuro Exam (Abbreviated): Alert, Oriented, Normal Cognition, No Motor/Sensory Deficits Extremities: No Pedal Edema, Other (left leg prosthesis. ) Psychiatric: Flat Affect Skin Exam: Warm, Dry, Normal Color Course - Vital Signs Last Recorded V/S: Last Vital Signs Temp 36.8 C 10/02/17 21:00 Pulse 84 10/02/17 21:00 Resp 13 10/02/17 21:00 BP 158/53 H 10/02/17 21:00 Pulse Ox 99 10/02/17 21:00 Orthostatic Blood Pressure [ 104/63 Standing] Orthostatic Blood Pressure [ 146/60 Sitting] Orthostatic Blood Pressure [ 121/93 Supine] - Orders/Labs/Meds Orders: Active Orders 24 hr Category Date Time Status EKG Documentation Completion [RC] STAT Care 10/02/17 20:58 Active Head wo Cont [CT] Urgent Exams 10/02/17 21:52 Ordered Sodium Chloride 0.9% [Normal Saline] 1,000 ml Med 10/02/17 21:26 Active IV .BOLUS Sodium Chloride 0.9% [Normal Saline] 1,000 ml Med 10/02/17 21:52 Active IV .BOLUS Medication Orders Sodium Chloride (Normal Saline) 1,000 mls @ 999 mls/hr IV .BOLUS ONE Stop: 10/02/17 22:26 Last Admin: 10/02/17 21:25 Dose: 999 mls/hr Sodium Chloride (Normal Saline) 1,000 mls @ 999 mls/hr IV .BOLUS ONE Stop: 10/02/17 22:52 Labs: Laboratory Tests 10/02/17 10/02/17 Range/Units 21:03 21:03 WBC 8.8 (5.0-10.0) 10^3/uL RBC 4.23 (4.2-5.4) 10^6/uL Hgb 12.1 (12.0-16.0) g/dL Hct 38.5 (37.0-47.0) % MCV 91.0 (80-100) fL MCH 28.6 (27.0-34.0) pg MCHC 31.4 L (33.0-35.0) g/dL Plt Count 258 D (150-450) 10^3/uL Neut % (Auto) 52.9 (42.2-75.2) % Lymph % (Auto) 35.9 (20.5-50.1) % [place] % (Auto) 7.1 (2-8) % Eos % (Auto) 3.8 H (1.0-3.0) % Baso % (Auto) 0.3 (0.0-1.0) % Sodium 139 (135-145) mmol/L Potassium 3.6 (3.6-5.0) mmol/L Chloride 107 (101-111) mmol/L Carbon Dioxide 26.0 (21.0-31.0) mmol/L Anion Gap 9.6 BUN 11 (7-18) mg/dL Creatinine 0.4 L (0.6-1.3) mg/dL Est Cr Clr Drug Dosing 143.68 mL/min Estimated GFR (MDRD) > 60 BUN/Creatinine Ratio 27.50 Glucose 145 H (74-105) mg/dL Calcium 8.5 (8.4-10.2) mg/dl Total Bilirubin 0.5 (0.2-1.0) mg/dL AST 25 (10-42) IU/L ALT 22 (10-60) IU/L Alkaline Phosphatase 111 (42-121) IU/L Troponin I < 0.02 (0.00-0.02) ng/ml Total Protein 6.8 (6.7-8.2) g/dl Albumin 3.2 (3.2-5.5) g/dl Globulin 3.6 Albumin/Globulin Ratio 0.89 Meds: Medications Generic Name Dose Route Start Last Admin Trade Name Freq PRN Reason Stop Dose Admin Sodium Chloride 1,000 mls @ 999 mls/hr 10/02/17 21:26 10/02/17 21:25 Normal Saline IV 10/02/17 22:26 999 mls/hr .BOLUS ONE Administration Sodium Chloride 1,000 mls @ 999 mls/hr 10/02/17 21:52 Normal Saline IV 10/02/17 22:52 .BOLUS ONE Discontinued Medications Generic Name Dose Route Start Last Admin Trade Name Alisa PRN Reason Stop Dose Admin Meclizine HCl 12.5 mg 10/02/17 20:57 10/02/17 21:20 Antivert PO 10/02/17 20:58 12.5 mg ONETIME ONE Administration Metoclopramide HCl 10 mg 10/02/17 21:48 Reglan IVPUSH 10/02/17 21:49 ONETIME ONE Ondansetron HCl 4 mg 10/02/17 20:57 10/02/17 21:17 Zofran IV 10/02/17 20:58 4 mg ONETIME ONE Administration - Re-Assessments/Exams Free Text/Narrative Re-Assessment/Exam: 10/02/17 21:38 s/p zofran & antivert = better with dizziness still little nauseous. 10/02/17 21:[address] Menard who kindly admitted pt to observation Departure - Departure Time of Disposition: 21:55 Disposition: Refer to Observation Condition: Fair Clinical Impression: Chest tightness, Vertigo Syncope Qualifiers: Syncope type: unspecified Qualified Code(s): R55 - Syncope and collapse - Discharge Information Forms: ED Department Discharge - My Orders Last 24 Hours: My Active Orders 10/02/17 20:58 EKG Documentation Completion [RC] STAT 10/02/17 21:26 Sodium Chloride 0.9% [Normal Saline] 1,000 ml IV .BOLUS 10/02/17 21:52 Head wo Cont [CT] Urgent Sodium Chloride 0.9% [Normal Saline] 1,000 ml IV .BOLUS - Assessment/Plan Last 24 Hours: My Active Orders 10/02/17 20:58 EKG Documentation Completion [RC] STAT 10/02/17 21:26 Sodium Chloride 0.9% [Normal Saline] 1,000 ml IV .BOLUS 10/02/17 21:52 Head wo Cont [CT] Urgent Sodium Chloride 0.9% [Normal Saline] 1,000 ml IV .BOLUS
[2017-10-02] MEDS ORDERED: Sodium Chloride 0.9% 1,000 ML IV ONE ×2 (21:26→21:52)
[2017-10-02 21:28] LABS: ANION GAP 9.6; CHLORIDE,CL 107 mmol/L (101-111); SODIUM,NA 139 mmol/L (135-145)
[2017-10-02] MEDS ORDERED: Metoclopramide 10 MG/2 ML SDV IVPUSH ONE (21:48)
[2017-10-02] MEDS ORDERED: Ibuprofen 800 MG Tab PO PRN (23:10)
[2017-10-02] MEDS ORDERED: Sodium Chloride 0.9% 10 ML Syringe FLUSH PRN (23:13)
[2017-10-02] MEDS ORDERED: Ondansetron 4 MG/2 ML SDV IVPUSH PRN (23:13)
[2017-10-02] MEDS ORDERED: Promethazine 25 MG Tab PO PRN (23:13)
[2017-10-02] MEDS ORDERED: Zolpidem 5 MG Tab PO PRN (23:13)
[2017-10-02] MEDS ORDERED: Insulin Aspart 100 Units/ML 3 ML Pen SUBCUT SCH (23:15)
[2017-10-02] MEDS ORDERED: Sodium Chloride 0.9% 1,000 ML IV SCH (23:15)
--- NOTE | 2017-10-02 23:23 | PCM.HP ---
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 The patient developed vertigo symptoms 34 days prior to this admission. The vertigo symptoms are worse with moving the head quickly, getting up. It is better when not moving. Associated with nausea No abdominal pain, felt some chest tightness. She thinks that about 3 days ago she passed out when she was getting out of bed and fell back to the bed. No shortness of breath. No headache. No head trauma. Left Arm Pain Score (Numeric/FACES): 7 - Related Data Allergies/Adverse Reactions: Allergies Allergy/AdvReac Type Severity Reaction Status Date / Time ciprofloxacin [From Cipro] Allergy Severe Hives Verified 10/02/17 22:31 ciprofloxacin HCl Allergy Severe Hives Verified 10/02/17 22:31 [From Cipro] piperacillin sodium Allergy Severe Hives Verified 10/02/17 22:31 [From Zosyn] tazobactam sodium Allergy Severe Hives Verified 10/02/17 22:31 [From Zosyn] piperacillin [From Zosyn] Allergy Unknown Cannot Verified 10/02/17 22:31 Remember tazobactam [From Zosyn] Allergy Unknown Cannot Verified 10/02/17 22:31 Remember Home Medications: Home Meds Pregabalin [Lyrica] 300 mg PO BID 12/05/13 [History] Pioglitazone [Actos] 30 mg PO DAILY 01/01/14 [History] Ibuprofen [Motrin] 800 mg PO Q6H PRN 09/01/14 [History] metFORMIN [Glucophage] 500 mg PO BID 04/21/17 [History] Past Medical History HEENT History: Reports: None Cardiovascular History: Reports: None Respiratory History: Reports: None Gastrointestinal History: Reports: None Genitourinary History: Reports: None 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 OB/BYN History: 2 Musculoskeletal History: Reports: Amputation Other Musculoskeletal History: Left Below th e knee Neurological History: Reports: None Psychiatric History: Reports: None Endocrine/Metabolic History: Reports: Diabetes, Type I, Obesity/BMI 30+ Hematologic History: Reports: None Immunologic History: Reports: None Oncologic (Cancer) History: Reports: None Dermatologic History: Reports: None - Infectious Disease History Infectious Disease History: Reports: Chicken Pox - Past Surgical History Musculoskeletal Surgical History: Reports: Amputation Social & Family History - Family History Family Medical History: Noncontributory - Tobacco Use Smoking Status *Q: Current Every Day Smoker Years of Tobacco use: 35 Packs/Tins Daily: 1 Second Hand Smoke Exposure: Yes - Caffeine Use Caffeine Use: Reports: Coffee, Soda - Recreational Drug Use Recreational Drug Use: Yes - Living Situation & Occupation Living situation: Reports: with Family Occupation: Employed H&P Review of Systems - Review of Systems: Review Of Systems: See Below General: Denies: Fever, Chills HEENT: Denies: Ear Pain, Eye Pain, Rhinitis, Sore Throat, Visual Changes Pulmonary: Denies: Shortness of Breath Cardiovascular: Reports: Chest Pain (Discomfort), Syncope Gastrointestinal: Denies: Abdominal Pain Genitourinary: Denies: Dysuria, Frequency Musculoskeletal: Denies: Neck Pain Psychiatric: Denies: Confusion Neurological: Reports: Dizziness, Syncope, Weakness. Denies: Confusion, Headache, Numbness, Seizure, Tingling, Trouble Speaking Exam - Exam Exam: See Below - Vital Signs Vital Signs: Last Vital Signs Temp 36.4 C 10/02/17 22:30 Pulse 83 10/02/17 22:30 Resp 16 10/02/17 22:30 BP 106/38 L 10/02/17 22:30 Pulse Ox 95 10/02/17 22:30 Orthostatic Blood Pressure [ 104/63 Standing] Orthostatic Blood Pressure [ 146/60 Sitting] Orthostatic Blood Pressure [ 121/93 Supine] Weight: 98.792 kg - Exam General: Alert, Oriented Neck: Supple Lungs: Clear to Auscultation, Normal Respiratory Effort Cardiovascular: Regular Rate, Regular Rhythm GI/Abdominal Exam: Normal Bowel Sounds, Soft, Non-Tender, Other (Obese) Extremities: No Pedal Edema, Other (Status post left leg amputation) Skin: Warm, Dry Neurological: Cranial Nerves Intact, Strength Equal Bilateral, Normal Speech Neuro Extensive - Mental Status: Alert, Oriented x3, Normal Mood/Affect. No: Disorientation to Person, Disorientation to Place, Disorientation to Time Neuro Extensive - Motor, Sensory, Reflexes: No: Ataxia, Tongue Deviation (L), Tongue Deviation (R), Dysarthria, Abnormal Finger to Nose, Tremor Psychiatric: Alert, Normal Affect, Normal Mood - Patient Data Lab Results Last 24 hrs: Laboratory Results - last 24 hr 10/02/17 10/02/17 Range/Units 21:03 21:03 WBC 8.8 (5.0-10.0) 10^3/uL RBC 4.23 (4.2-5.4) 10^6/uL Hgb 12.1 (12.0-16.0) g/dL Hct 38.5 (37.0-47.0) % MCV 91.0 (80-100) fL MCH 28.6 (27.0-34.0) pg MCHC 31.4 L (33.0-35.0) g/dL Plt Count 258 D (150-450) 10^3/uL Neut % (Auto) 52.9 (42.2-75.2) % Lymph % (Auto) 35.9 (20.5-50.1) % [place] % (Auto) 7.1 (2-8) % Eos % (Auto) 3.8 H (1.0-3.0) % Baso % (Auto) 0.3 (0.0-1.0) % Sodium 139 (135-145) mmol/L Potassium 3.6 (3.6-5.0) mmol/L Chloride 107 (101-111) mmol/L Carbon Dioxide 26.0 (21.0-31.0) mmol/L Anion Gap 9.6 BUN 11 (7-18) mg/dL Creatinine 0.4 L (0.6-1.3) mg/dL Est Cr Clr Drug Dosing 143.68 mL/min Estimated GFR (MDRD) > 60 BUN/Creatinine Ratio 27.50 Glucose 145 H (74-105) mg/dL Calcium 8.5 (8.4-10.2) mg/dl Total Bilirubin 0.5 (0.2-1.0) mg/dL AST 25 (10-42) IU/L ALT 22 (10-60) IU/L Alkaline Phosphatase 111 (42-121) IU/L Troponin I < 0.02 (0.00-0.02) ng/ml Total Protein 6.8 (6.7-8.2) g/dl Albumin 3.2 (3.2-5.5) g/dl Globulin 3.6 Albumin/Globulin Ratio 0.89 Result Diagrams: 10/02/17 21:03 10/02/17 21:03 - Problem List (1) Vertigo SNOMED Code(s): 448944917 ICD Code: R42 - DIZZINESS AND GIDDINESS Status: Acute Current Visit: No Problem List Initiated/Reviewed/Updated: Yes Orders Last 24hrs: Active Orders 24 hr Category Date Time Status Patient Status [ADT] Routine ADT 10/02/17 23:13 Ordered EKG Documentation Completion [RC] STAT Care 10/02/17 20:58 Active Glucose [Blood Glucose Check, Bedside] [RC] QIDACANDBED Care 10/02/17 23:11 Ordered Oxygen Therapy [RC] PRN Care 10/02/17 23:13 Ordered Peripheral IV Care [RC] . DIRECTED Care 10/02/17 23:15 Ordered Telemetry Monitoring [Cardiac Monitoring] [RC] . Care 10/02/17 23:09 Ordered DIRECTED Up With Assistance [RC] ASDIRECTED Care 10/02/17 23:13 Ordered VTE/DVT Education [RC] PER UNIT ROUTINE Care 10/02/17 23:13 Ordered Vital Signs [RC] Q4H Care 10/02/17 23:13 Ordered OT Evaluation and Treatment [CONS] Routine Cons 10/02/17 23:12 Ordered PT Evaluation and Treatment [CONS] Routine Cons 10/02/17 23:12 Ordered Regular Diet [DIET] Diet 10/02/17 Breakfast Ordered BASIC METABOLIC PANEL,BMP [CHEM] AM Lab 10/03/17 05:15 Ordered CBC WITH AUTO DIFF [HEME] AM Lab 10/03/17 05:15 Ordered MAGNESIUM [CHEM] AM Lab 10/03/17 05:11 Ordered PHOSPHORUS [CHEM] AM Lab 10/03/17 05:11 Ordered TROPONIN I [CHEM] AM Lab 10/03/17 05:11 Ordered Heparin Sodium Med 10/03/17 06:00 Ordered 5,000 units SUBCUT Q8HR Ibuprofen [Motrin] Med 10/02/17 23:10 Ordered 800 mg PO Q6H PRN Insulin Aspart [NovoLOG] Med 10/02/17 23:15 Ordered See Protocol SUBCUT .QID AC + HS Meclizine [Antivert] Med 07/22/18 09:00 Ordered 25 mg PO TID Ondansetron [Zofran] Med 10/02/17 23:13 Ordered 4 mg IVPUSH Q6H PRN Pioglitazone [Actos] Med 10/03/17 09:00 Ordered 30 mg PO DAILY Pregabalin [Lyrica] Med 10/03/17 09:00 Ordered 300 mg PO BID Promethazine [Phenergan] Med 10/02/17 23:13 Ordered 25 mg PO Q6H PRN Sodium Chloride 0.9% @ 125 MLS/HR (1000ml) Med 10/02/17 23:15 Ordered Sodium Chloride 0.9% [Normal Saline] 1,000 ml IV ASDIRECTED Sodium Chloride 0.9% [Saline Flush] Med 10/02/17 23:13 Ordered 10 ml FLUSH ASDIRECTED PRN Zolpidem [Ambien] Med 10/02/17 23:13 Ordered 5 mg PO BEDTIME PRN Peripheral IV Insertion Adult [OM.PC] Routine Oth 10/02/17 23:13 Ordered Resuscitation Status Routine Resus Stat 10/02/17 23:13 Ordered Medication Orders Sodium Chloride (Normal Saline) 1,000 mls @ 125 mls/hr IV ASDIRECTED MIKE Ibuprofen (Motrin) 800 mg PO Q6H PRN PRN Reason: Pain Insulin Aspart (Novolog) 0 unit SUBCUT .QID AC + HS MIKE; Protocol Meclizine HCl (Antivert) 25 mg PO TID MI[facility] Pioglitazone HCl (Actos) 30 mg PO DAILY [facility] Pregabalin (Lyrica) 300 mg PO BID [facility] Assessment/Plan Comment:: The patient is a 52-year-old lady who presented with a few days history of vertigo. This is worse when moving the head. There is no associated focal neurological deficit, headache, vision change, earache. There are associated symptoms of nonspecific chest discomfort, nausea. The patient most likely has benign positional vertigo No focal deficit We will treat with meclizine, Phenergan If symptoms does not improve we'll have physical and occupational therapy evaluate the patient Further differential diagnosis includes possible stroke CT head pending. Cardiac event is unlikely, but we'll monitor troponin and telemetry. History of diabetes We'll hold metformin Continue Actos follow blood sugars and use supplemental insulin as needed History of chronic pain Continue Lyrica DVT prophylaxis will be with subcutaneous heparin
[2017-10-03] MEDS ORDERED: Heparin Sodium 5,000 Units/ML Vial SUBCUT SCH (06:00)
[2017-10-03 07:09] LABS: ANION GAP 7.8; CHLORIDE,CL 111 mmol/L (101-111); SODIUM,NA 140 mmol/L (135-145)
[2017-10-03 07:42] VITALS: BP 130/49
[2017-10-03] MEDS: Insulin Aspart 100 Units/ML 3 ML Pen SUBCUT SCH ×2 (07:46→12:09)
[2017-10-03] MEDS ORDERED: Insulin Aspart 100 Units/ML 3 ML Pen SUBCUT SCH (09:00)
[2017-10-03] MEDS ORDERED: Pregabalin 75 MG Cap PO SCH (09:00)
[2017-10-03] MEDS ORDERED: Meclizine 12.5 MG Tab PO SCH (09:00)
--- NOTE | 2017-10-03 11:09 | PCM.DCSUM1 ---
Discharge Summary - Hospital Course Free Text/Narrative:: The patient is a 52-year-old lady who has developed dizziness. The vertigo is worse with movements of head. There was question of the patient had a true syncopal a few days ago. She was admitted and monitored on telemetry which showed no significant arrhythmia. Electrolytes were followed mild hypomagnesemia was replaced CT of the head showed no acute changes On examination had no focal neurological deficit. The patient was given meclizine with which the patient's symptoms have improved. She was able to get up and ambulate, was able to eat breakfast. She will be discharged in a stable condition Diagnosis: Stroke: No - Discharge Data Discharge Date: 10/03/17 Discharge Disposition: Home, Self-Care 01 Condition: Stable - Discharge Diagnosis/Problem(s) (1) Vertigo SNOMED Code(s): 880292116 ICD Code: R42 - DIZZINESS AND GIDDINESS Status: Acute Current Visit: No - Patient Summary/Data Consults: Consultations 10/02/17 23:12 OT Evaluation and Treatment [CONS] Routine PT Evaluation and Treatment [CONS] Routine - Discharge Plan *PRESCRIPTION DRUG MONITORING PROGRAM REVIEWED*: Not Applicable *COPY OF PRESCRIPTION DRUG MONITORING REPORT IN PATIENT MOHINI: Not Applicable Prescriptions/Med Rec: Meclizine [Antivert] 25 mg PO TID PRN #12 tablet PRN Reason: dizzyness Promethazine [Phenergan] 25 mg PO Q6H PRN #12 tablet PRN Reason: Nausea Home Medications: Home Meds Pregabalin [Lyrica] 300 mg PO BID 12/05/13 [History] Pioglitazone [Actos] 30 mg PO DAILY 01/01/14 [History] Ibuprofen [Motrin] 800 mg PO Q6H PRN 09/01/14 [History] metFORMIN [Glucophage] 500 mg PO BID 04/21/17 [History] Meclizine [Antivert] 25 mg PO TID PRN #12 tablet 10/03/17 [Rx] Promethazine [Phenergan] 25 mg PO Q6H PRN #12 tablet 10/03/17 [Rx] Referrals: PCP,Unobtain [Ordering Only Provider] - (in [facility] [place] in 2-3 days re: vertigo) - General Info Date of Service: 10/03/17 Functional Status: Reports: Pain Controlled, Tolerating Diet, Ambulating - Review of Systems General: Denies: Fever, Weakness Pulmonary: Denies: Shortness of Breath Cardiovascular: Denies: Chest Pain Gastrointestinal: Denies: Abdominal Pain Neurological: Denies: Confusion, Gait Disturbance - Patient Data Vitals - Most Recent: Last Vital Signs Temp 36.4 C 10/03/17 07:00 Pulse 75 10/03/17 07:00 Resp 20 10/03/17 07:00 BP 130/49 L 10/03/17 07:00 Pulse Ox 97 10/03/17 07:00 Orthostatic Blood Pressure [ 104/63 Standing] Orthostatic Blood Pressure [ 146/60 Sitting] Orthostatic Blood Pressure [ 121/93 Supine] Weight - Most Recent: 98.792 kg I&O - Last 24 hours: Intake & Output 10/02/17 10/03/17 10/03/17 22:59 06:59 14:59 Intake Total 1720 240 Output Total 500 850 Balance 1220 -610 Lab Results - Last 24 hrs: Laboratory Results - last 24 hr 10/02/17 10/02/17 10/03/17 Range/Units 21:03 21:03 06:18 WBC 8.8 (5.0-10.0) 10^3/uL RBC 4.23 (4.2-5.4) 10^6/uL Hgb 12.1 (12.0-16.0) g/dL Hct 38.5 (37.0-47.0) % MCV 91.0 (80-100) fL MCH 28.6 (27.0-34.0) pg MCHC 31.4 L (33.0-35.0) g/dL Plt Count 258 D (150-450) 10^3/uL Neut % (Auto) 52.9 (42.2-75.2) % Lymph % (Auto) 35.9 (20.5-50.1) % [place] % (Auto) 7.1 (2-8) % Eos % (Auto) 3.8 H (1.0-3.0) % Baso % (Auto) 0.3 (0.0-1.0) % Sodium 139 140 (135-145) mmol/L Potassium 3.6 3.8 (3.6-5.0) mmol/L Chloride 107 111 (101-111) mmol/L Carbon Dioxide 26.0 25.0 (21.0-31.0) mmol/L Anion Gap 9.6 7.8 BUN 11 8 (7-18) mg/dL Creatinine 0.4 L 0.5 L (0.6-1.3) mg/dL Est Cr Clr Drug Dosing 143.68 105.28 mL/min Estimated GFR (MDRD) > 60 > 60 BUN/Creatinine Ratio 27.50 Glucose 145 H 92 (74-105) mg/dL POC Glucose (70-105) mg/dl Calcium 8.5 8.2 L (8.4-10.2) mg/dl Phosphorus 3.9 (2.5-4.6) mg/dL Magnesium 1.7 L (1.8-2.5) mg/dL Total Bilirubin 0.5 (0.2-1.0) mg/dL AST 25 (10-42) IU/L ALT 22 (10-60) IU/L Alkaline Phosphatase 111 (42-121) IU/L Troponin I < 0.02 < 0.02 (0.00-0.02) ng/ml Total Protein 6.8 (6.7-8.2) g/dl Albumin 3.2 (3.2-5.5) g/dl Globulin 3.6 Albumin/Globulin Ratio 0.89 10/03/17 10/03/17 Range/Units 06:18 07:20 WBC 7.4 (5.0-10.0) 10^3/uL RBC 3.95 L (4.2-5.4) 10^6/uL Hgb 11.3 L (12.0-16.0) g/dL Hct 36.4 L (37.0-47.0) % MCV 92.2 (80-100) fL MCH 28.6 (27.0-34.0) pg MCHC 31.0 L (33.0-35.0) g/dL Plt Count 233 (150-450) 10^3/uL Neut % (Auto) 44.7 (42.2-75.2) % Lymph % (Auto) 43.6 (20.5-50.1) % [place] % (Auto) 7.2 (2-8) % Eos % (Auto) 4.2 H (1.0-3.0) % Baso % (Auto) 0.3 (0.0-1.0) % Sodium (135-145) mmol/L Potassium (3.6-5.0) mmol/L Chloride (101-111) mmol/L Carbon Dioxide (21.0-31.0) mmol/L Anion Gap BUN (7-18) mg/dL Creatinine (0.6-1.3) mg/dL Est Cr Clr Drug Dosing mL/min Estimated GFR (MDRD) BUN/Creatinine Ratio Glucose (74-105) mg/dL POC Glucose 85 (70-105) mg/dl Calcium (8.4-10.2) mg/dl Phosphorus (2.5-4.6) mg/dL Magnesium (1.8-2.5) mg/dL Total Bilirubin (0.2-1.0) mg/dL AST (10-42) IU/L ALT (10-60) IU/L Alkaline Phosphatase (42-121) IU/L Troponin I (0.00-0.02) ng/ml Total Protein (6.7-8.2) g/dl Albumin (3.2-5.5) g/dl Globulin Albumin/Globulin Ratio Med Orders - Current: Current Medications Heparin Sodium (Porcine) (Heparin Sodium) 5,000 units SUBCUT Q8HR [facility] Last Admin: 10/03/17 05:40 Dose: 5,000 units Sodium Chloride (Normal Saline) 1,000 mls @ 125 mls/hr IV ASDIRECTED [facility] Last Infusion: 10/03/17 10:04 Dose: Infused Ibuprofen (Motrin) 800 mg PO Q6H PRN PRN Reason: Pain Insulin Aspart (Novolog) 0 unit SUBCUT QIDACANDBED [facility]; Protocol Last Admin: 10/03/17 07:46 Dose: Not Given Magnesium Oxide (Magnesium Oxide) 250 mg PO BIDM [facility] Meclizine HCl (Antivert) 25 mg PO TID [facility] Last Admin: 10/03/17 08:12 Dose: 25 mg Ondansetron HCl (Zofran) 4 mg IVPUSH Q6H PRN PRN Reason: Nausea/Vomiting Pioglitazone HCl (Actos) 30 mg PO DAILY [facility] Last Admin: 10/03/17 08:12 Dose: 30 mg Pregabalin (Lyrica) 300 mg PO BID [facility] Last Admin: 10/03/17 08:12 Dose: 300 mg Promethazine HCl (Phenergan) 25 mg PO Q6H PRN PRN Reason: nausea, able to take PO Sodium Chloride (Saline Flush) 10 ml FLUSH ASDIRECTED PRN PRN Reason: Keep Vein Open Zolpidem Tartrate (Ambien) 5 mg PO BEDTIME PRN PRN Reason: Sleep Discontinued Medications Sodium Chloride (Normal Saline) 1,000 mls @ 999 mls/hr IV .BOLUS ONE Stop: 10/02/17 22:26 Last Admin: 10/02/17 21:25 Dose: 999 mls/hr Sodium Chloride (Normal Saline) 1,000 mls @ 999 mls/hr IV .BOLUS ONE Stop: 10/02/17 22:52 Last Admin: 10/02/17 21:50 Dose: 999 mls/hr Insulin Aspart (Novolog) 0 unit SUBCUT .QID AC + HS MIKE; Protocol Meclizine HCl (Antivert) 12.5 mg PO ONETIME ONE Stop: 10/02/17 20:58 Last Admin: 10/02/17 21:20 Dose: 12.5 mg Metoclopramide HCl (Reglan) 10 mg IVPUSH ONETIME ONE Stop: 10/02/17 21:49 Last Admin: 10/02/17 21:55 Dose: 10 mg Ondansetron HCl (Zofran) 4 mg IV ONETIME ONE Stop: 10/02/17 20:58 Last Admin: 10/02/17 21:17 Dose: 4 mg - Exam General: Reports: Alert, Oriented HEENT: Reports: Pupils Equal, Pupils Reactive, EOMI Neck: Reports: Supple Lungs: Reports: Clear to Auscultation, Normal Respiratory Effort Cardiovascular: Reports: Regular Rate, Regular Rhythm GI/Abdominal Exam: Normal Bowel Sounds, Soft, Non-Tender Extremities: No Pedal Edema Skin: Reports: Warm, Dry, Intact Neurological: Reports: No New Focal Deficit, Normal Gait, Normal Speech, Strength Equal Bilateral, Sensation Intact
--- NOTE | 2017-10-05 07:41 | EKG ---
10/02/2017- NIKHIL STOCKTON - EKG per my reading shows sinus rhythm at the rate of 85. MODL /[id number]
== END 2017-10-03 11:45 | disposition home or self-care (01) ==
LOC: DL.ED 20:52 → UNDOADMOB 22:11 → DL.MS 22:11
PROVIDERS: ADMIT Internal Medicine; ATTEND Internal Medicine
DX: R42 Dizziness and giddiness (principal); E10.9 Type 1 diabetes mellitus without complications; E66.9 Obesity, unspecified; F17.210 Nicotine dependence, cigarettes, uncomplicated; E83.42 Hypomagnesemia; Z79.84 Long term (current) use of oral hypoglycemic drugs; Z79.899 Other long term (current) drug therapy; Z88.1 Allergy status to other antibiotic agents
CPT/HCPCS: 36415; 70450; 71045; 80048; 80053; 82962; 83735; 84100; 84484; 85025; 93005; 93010; 96361; 96365; 96374; 96375; 99284; 99285; A9270-GY; J1644; J2405; J2765; J7030

== ENCOUNTER 2018-03-27 12:19 | Emergency (ER) | payer MEDICAID, MEDICARE | END 2018-03-27 13:50 | disposition left against medical advice (07) | LOC: DL.ED 12:19 | DX: Z53.21 Procedure and treatment not carried out due to patient leaving prior to being seen by health care provider (principal) ==

== ENCOUNTER 2018-05-22 18:40 | Emergency (ER) | payer MEDICARE, MEDICAID ==
[2018-05-22 19:12] VITALS: BP 141/54
[2018-05-22 20:40] LABS: ANION GAP 12.9; CHLORIDE,CL 109 mmol/L (101-111); SODIUM,NA 139 mmol/L (135-145)
--- NOTE | 2018-05-22 21:20 | EDM.PDOC ---
ED HPI GENERAL MEDICAL PROBLEM - General Chief Complaint: Wound Recheck Stated Complaint: LEG DIFFERENT COLOR Time Seen by Provider: 05/22/18 21:10 Source of Information: Reports: Patient History Limitations: Reports: No Limitations - History of Present Illness INITIAL COMMENTS - FREE TEXT/NARRATIVE: This 52 yo female patient reports to the ED with continued pain in her left lower extremity. The patient is a left below the knee amputee that has been experiencing increased pain at the site of amputation. The patient was started on antibiotics. The patient reports she has continued to have pain and has been taking the medications as prescribed. 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 Left Stump Pain Score (Numeric/FACES): 7 - Related Data Allergies Allergy/AdvReac Type Severity Reaction Status Date / Time ciprofloxacin [From Cipro] Allergy Severe Hives Verified 05/22/18 19:22 ciprofloxacin HCl Allergy Severe Hives Verified 05/22/18 19:22 [From Cipro] piperacillin sodium Allergy Severe Hives Verified 05/22/18 19:22 [From Zosyn] tazobactam sodium Allergy Severe Hives Verified 05/22/18 19:22 [From Zosyn] piperacillin [From Zosyn] Allergy Unknown Cannot Verified 05/22/18 19:22 Remember tazobactam [From Zosyn] Allergy Unknown Cannot Verified 05/22/18 19:22 Remember Home Meds: Home Meds Pregabalin [Lyrica] 300 mg PO BID 12/05/13 [History] Pioglitazone [Actos] 30 mg PO DAILY 01/01/14 [History] Ibuprofen [Motrin] 800 mg PO Q6H PRN 09/01/14 [History] metFORMIN [Glucophage] 500 mg PO BID 04/21/17 [History] Meclizine [Antivert] 25 mg PO TID PRN #12 tablet 10/03/17 [Rx] Promethazine [Phenergan] 25 mg PO Q6H PRN #12 tablet 10/03/17 [Rx] Past Medical History HEENT History: Reports: None Cardiovascular History: Reports: None Respiratory History: Reports: None Gastrointestinal History: Reports: None Genitourinary History: Reports: None 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 Musculoskeletal History: Reports: Amputation Other Musculoskeletal History: Left Below the knee Neurological History: Reports: None Psychiatric History: Reports: None Endocrine/Metabolic History: Reports: Diabetes, Type I, Obesity/BMI 30+ Hematologic History: Reports: None Immunologic History: Reports: None Oncologic (Cancer) History: Reports: None Dermatologic History: Reports: None - Infectious Disease History Infectious Disease History: Reports: Chicken Pox - Past Surgical History Musculoskeletal Surgical History: Reports: Amputation Social & Family History - Family History Family Medical History: Noncontributory - Caffeine Use Caffeine Use: Reports: Soda - Living Situation & Occupation Living situation: Reports: with Family Occupation: Employed Review of Systems - Review of Systems Review Of Systems: ROS reveals no pertinent complaints other than HPI. ED EXAM, GENERAL - Physical Exam Exam: See Below Exam Limited By: No Limitations General Appearance: Alert, WD/WN, Mild Distress Eye Exam: Bilateral Eye: EOMI, Normal Inspection, PERRL Ears: Normal External Exam, Normal Canal, Hearing Grossly Normal, Normal TMs Nose: Normal Inspection, Normal Mucosa, No Blood Throat/Mouth: Normal Inspection, Normal Lips, Normal Teeth, Normal Gums, Normal Oropharynx, Normal Voice, No Airway Compromise Head: Atraumatic, Normocephalic Neck: Normal Inspection, Supple, Non-Tender, Full Range of Motion Respiratory/Chest: No Respiratory Distress, Lungs Clear, Normal Breath Sounds, No Accessory Muscle Use, Chest Non-Tender Cardiovascular: Normal Peripheral Pulses, Regular Rate, Rhythm, No Edema, No Gallop, No JVD, No Murmur, No Rub GI/Abdominal: Normal Bowel Sounds, Soft, Non-Tender, No Organomegaly, No Distention, No Abnormal Bruit, No Mass (Female) Exam: Deferred Rectal (Female) Exam: Deferred Back Exam: Normal Inspection, Full Range of Motion, NT Extremities: Leg Pain (The ambutation site continues to have some discoloration (bruising), but no active drainage. The site appears to be healing well as compared to previous examination. The patient was again advised to avoid wearing her prostesis to allow the area to heal. ) Neurological: Alert, Oriented, CN II-XII Intact, Normal Cognition, Normal Gait, Normal Reflexes, No Motor/Sensory Deficits Psychiatric: Normal Affect, Normal Mood Skin Exam: Warm, Dry, Intact, Normal Color, No Rash, Other (See above assessment of left lower extremity. ) Lymphatic: No Adenopathy Course - Vital Signs Last Recorded V/S: Last Vital Signs Temp 35.9 C 05/22/18 19:00 Pulse 90 05/22/18 19:00 Resp 16 05/22/18 19:00 BP 141/54 H 05/22/18 19:00 Pulse Ox 100 05/22/18 19:00 - Orders/Labs/Meds Orders: Active Orders 24 hr Category Date Time Status CULTURE BLOOD [BC] Stat Lab 05/22/18 20:10 Received Labs: Laboratory Tests 05/22/18 05/22/18 05/22/18 Range/Units 20:10 20:10 20:20 WBC 9.1 (5.0-10.0) 10^3/uL RBC 3.97 L (4.2-5.4) 10^6/uL Hgb 11.8 L (12.0-16.0) g/dL Hct 37.1 (37.0-47.0) % MCV 93.5 (80-100) fL MCH 29.7 (27.0-34.0) pg MCHC 31.8 L (33.0-35.0) g/dL Plt Count 275 (150-450) 10^3/uL Neut % (Auto) 47.7 (42.2-75.2) % Lymph % (Auto) 41.9 (20.5-50.1) % [place] % (Auto) 7.9 (2-8) % Eos % (Auto) 2.2 (1.0-3.0) % Baso % (Auto) 0.3 (0.0-1.0) % Sodium 139 (135-145) mmol/L Potassium 3.9 (3.6-5.0) mmol/L Chloride 109 (101-111) mmol/L Carbon Dioxide 21.0 (21.0-31.0) mmol/L Anion Gap 12.9 BUN 10 (7-18) mg/dL Creatinine 0.6 (0.6-1.3) mg/dL Est Cr Clr Drug Dosing 95.79 mL/min Estimated GFR (MDRD) > 60 BUN/Creatinine Ratio 16.66 Glucose 113 H (74-105) mg/dL Lactic Acid 1.2 (0.5-2.2) mmol/L Calcium 8.4 (8.4-10.2) mg/dl Total Bilirubin 0.9 (0.2-1.0) mg/dL AST 21 (10-42) IU/L ALT 13 (10-60) IU/L Alkaline Phosphatase 129 H (42-121) IU/L Total Protein 6.2 L (6.7-8.2) g/dl Albumin 3.3 (3.2-5.5) g/dl Globulin 2.9 Albumin/Globulin Ratio 1.14 Departure - Departure Time of Disposition: 21:17 Disposition: Home, Self-Care 01 Condition: Fair Clinical Impression: Left leg pain - Discharge Information *PRESCRIPTION DRUG MONITORING PROGRAM REVIEWED*: Not Applicable *COPY OF PRESCRIPTION DRUG MONITORING REPORT IN PATIENT MOHINI: Not Applicable Forms: ED Department Discharge Care Plan Goals: The patient was advised of the examination and lab results during the visit. The patient was not given any pain medication during the visit. The patient was advised to avoid wearing her prosthesis and to follow-up with her primary care facility for a possible refitting of her prosthesis. The patient should continue on the medications given for infection. If the patient has any additional symptoms or concerns, the patient should either return to the emergency department or visit her primary care facility. - My Orders Last 24 Hours: My Active Orders 05/22/18 20:10 CULTURE BLOOD [BC] Stat - Assessment/Plan Last 24 Hours: My Active Orders 05/22/18 20:10 CULTURE BLOOD [BC] Stat
== END 2018-05-22 21:24 | disposition home or self-care (01) ==
LOC: DL.ED 18:40
DX: M79.662 Pain in left lower leg (principal); E10.9 Type 1 diabetes mellitus without complications; Z88.1 Allergy status to other antibiotic agents; Z79.84 Long term (current) use of oral hypoglycemic drugs; Z79.899 Other long term (current) drug therapy; Z89.512 Acquired absence of left leg below knee
CPT/HCPCS: 36415; 80053; 83605; 85025; 87040; 99283

== ENCOUNTER 2018-06-30 19:32 | Emergency (ER) | payer MEDICARE, MEDICAID ==
--- NOTE | 2018-06-30 19:55 | EDM.PDOC ---
ED HPI GENERAL MEDICAL PROBLEM - General Chief Complaint: General Stated Complaint: PATIENT FELL ON HER HAND AND FACE Time Seen by Provider: 06/30/18 19:51 Source of Information: Reports: Patient History Limitations: Reports: No Limitations - History of Present Illness INITIAL COMMENTS - FREE TEXT/NARRATIVE: fell last night onto face states has problem with dizziness if turns too quickly and take Rx for it. ? LOC?. has been eating today but nauseous. 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 Generalized Pain Score (Numeric/FACES): 8 - Related Data Allergies Allergy/AdvReac Type Severity Reaction Status Date / Time ciprofloxacin [From Cipro] Allergy Severe Hives Verified 06/30/18 19:50 ciprofloxacin HCl Allergy Severe Hives Verified 06/30/18 19:50 [From Cipro] piperacillin sodium Allergy Severe Hives Verified 06/30/18 19:50 [From Zosyn] tazobactam sodium Allergy Severe Hives Verified 06/30/18 19:50 [From Zosyn] piperacillin [From Zosyn] Allergy Unknown Cannot Verified 06/30/18 19:50 Remember tazobactam [From Zosyn] Allergy Unknown Cannot Verified 06/30/18 19:50 Remember Home Meds: Home Meds Pregabalin [Lyrica] 300 mg PO BID 12/05/13 [History] Pioglitazone [Actos] 30 mg PO DAILY 01/01/14 [History] Ibuprofen [Motrin] 800 mg PO Q6H PRN 09/01/14 [History] metFORMIN [Glucophage] 500 mg PO BID 04/21/17 [History] Meclizine [Antivert] 25 mg PO TID PRN #12 tablet 10/03/17 [Rx] Promethazine [Phenergan] 25 mg PO Q6H PRN #12 tablet 10/03/17 [Rx] Past Medical History HEENT History: Reports: None Cardiovascular History: Reports: None Respiratory History: Reports: None Gastrointestinal History: Reports: None Genitourinary History: Reports: None PROFESSOR IN FAMILY STUDIES History: Reports: Other PROFESSOR IN FAMILY STUDIES History: 2 Musculoskeletal History: Reports: Amputation Other Musculoskeletal History: Left Below the knee Neurological History: Reports: None Psychiatric History: Reports: None Endocrine/Metabolic History: Reports: Diabetes, Type I, Obesity/BMI 30+ Hematologic History: Reports: None Immunologic History: Reports: None Oncologic (Cancer) History: Reports: None Dermatologic History: Reports: None - Infectious Disease History Infectious Disease History: Reports: Chicken Pox - Past Surgical History Musculoskeletal Surgical History: Reports: Amputation Social & Family History - Family History Family Medical History: Noncontributory - Tobacco Use Smoking Status *Q: Current Every Day Smoker Years of Tobacco use: 33 Packs/Tins Daily: 0.5 Second Hand Smoke Exposure: Yes - Caffeine Use Caffeine Use: Reports: Soda - Recreational Drug Use Recreational Drug Use: No - Living Situation & Occupation Living situation: Reports: with Family Occupation: Employed ED ROS GENERAL - Review of Systems Review Of Systems: ROS reveals no pertinent complaints other than HPI. ED EXAM, GENERAL - Physical Exam Exam: See Below Exam Limited By: No Limitations General Appearance: Alert, WD/WN, Mild Distress, Other (discomfort) Eye Exam: Bilateral Eye: PERRL (pupils ER @ 4mm) Ears: Hearing Grossly Normal Nose: Nasal Tenderness, Other (spfl abrasion) Throat/Mouth: Normal Voice, No Airway Compromise Head: Facial Swelling, Facial Tenderness, Other (facial spfl arasion, no O/B) Neck: Non-Tender, Full Range of Motion Respiratory/Chest: No Respiratory Distress Cardiovascular: Regular Rate, Rhythm GI/Abdominal: Soft, Non-Tender Extremities: Other (tender R/P, NV wnl, minimal swelling over left 5th finger.) Neurological: Alert, Oriented, Normal Cognition, Normal Gait, No Motor/Sensory Deficits Psychiatric: Flat Affect Skin Exam: Warm, Dry, Normal Color Lymphatic: No Adenopathy Course - Vital Signs Last Recorded V/S: Last Vital Signs Temp 36.6 C 06/30/18 21:22 Pulse 87 06/30/18 21:22 Resp 18 06/30/18 21:22 BP 135/98 H 06/30/18 21:22 Pulse Ox 97 06/30/18 21:22 - Orders/Labs/Meds Meds: Medications Discontinued Medications Generic Name Dose Route Start Last Admin Trade Name Freq PRN Reason Stop Dose Admin Hydrocodone Bitart/Acetaminophen 1 tab 06/30/18 21:16 06/30/18 21:22 [place] 325-10 Mg PO 06/30/18 21:17 1 tab ONETIME ONE Administration - Re-Assessments/Exams Free Text/Narrative Re-Assessment/Exam: 04/18/19 21:17 results discussed wit pt. Departure - Departure Time of Disposition: 21:20 Disposition: Home, Self-Care 01 Condition: Good Clinical Impression: Contusion of face Qualifiers: Encounter type: initial encounter Qualified Code(s): S00.83XA - Contusion of other part of head, initial encounter Contusion of hand including fingers Qualifiers: Encounter type: initial encounter Laterality: left Qualified Code(s): S60.222A - Contusion of left hand, initial encounter - Discharge Information Instructions: Contusion, [id number] Forms: ED Department Discharge Additional Instructions: 1) rest 2) follow up at clinic
[2018-06-30] MEDS ORDERED: Acetaminophen/HYDROcodone 325-10 MG Tab PO ONE (21:16)
[2018-06-30 21:24] VITALS: BP 135/98
== END 2018-06-30 21:24 | disposition home or self-care (01) ==
LOC: DL.ED 19:32
DX: S00.83XA Contusion of other part of head, initial encounter (principal); S60.222A Contusion of left hand, initial encounter; S00.31XA Abrasion of nose, initial encounter; Z88.1 Allergy status to other antibiotic agents; Z88.8 Allergy status to other drugs, medicaments and biological substances; W19.XXXA Unspecified fall, initial encounter; F17.210 Nicotine dependence, cigarettes, uncomplicated
CPT/HCPCS: 70450; 70486; 73120-LT; 99283-25; A9270-GY

== ENCOUNTER 2018-07-08 20:29 | Emergency (ER) | payer MEDICARE, MEDICAID ==
[2018-07-08] MEDS ORDERED: Acetaminophen/HYDROcodone 325-10 MG Tab PO ONE (21:48)
--- NOTE | 2018-07-08 21:55 | EDM.PDOC ---
ED HPI GENERAL MEDICAL PROBLEM - General Chief Complaint: Lower Extremity Injury/Pain Stated Complaint: LEG HURTS [id number] Time Seen by Provider: 07/08/18 21:48 Source of Information: Reports: Patient History Limitations: Reports: No Limitations - History of Present Illness INITIAL COMMENTS - FREE TEXT/NARRATIVE: states had f/u with GF for her stump and taking clindamycin. not given pain meds. Left Stump Pain Score (Numeric/FACES): 8 - Related Data Allergies Allergy/AdvReac Type Severity Reaction Status Date / Time ciprofloxacin [From Cipro] Allergy Severe Hives Verified 07/08/18 21:00 ciprofloxacin HCl Allergy Severe Hives Verified 07/08/18 21:00 [From Cipro] piperacillin sodium Allergy Severe Hives Verified 07/08/18 21:00 [From Zosyn] tazobactam sodium Allergy Severe Hives Verified 07/08/18 21:00 [From Zosyn] piperacillin [From Zosyn] Allergy Unknown Cannot Verified 07/08/18 21:00 Remember tazobactam [From Zosyn] Allergy Unknown Cannot Verified 07/08/18 21:00 Remember Home Meds: Home Meds Pregabalin [Lyrica] 300 mg PO BID 12/05/13 [History] Pioglitazone [Actos] 30 mg PO DAILY 01/01/14 [History] Ibuprofen [Motrin] 800 mg PO Q6H PRN 09/01/14 [History] metFORMIN [Glucophage] 500 mg PO BID 04/21/17 [History] Meclizine [Antivert] 25 mg PO TID PRN #12 tablet 10/03/17 [Rx] Promethazine [Phenergan] 25 mg PO Q6H PRN #12 tablet 10/03/17 [Rx] Past Medical History HEENT History: Reports: None Cardiovascular History: Reports: None Respiratory History: Reports: None Gastrointestinal History: Reports: None Genitourinary History: Reports: None CRA History: Reports: Other CRA History: 2 Musculoskeletal History: Reports: Amputation Other Musculoskeletal History: Left Below the knee Neurological History: Reports: None Psychiatric History: Reports: None Endocrine/Metabolic History: Reports: Diabetes, Type I, Obesity/BMI 30+ Hematologic History: Reports: None Immunologic History: Reports: None Oncologic (Cancer) History: Reports: None Dermatologic History: Reports: None - Infectious Disease History Infectious Disease History: Reports: Chicken Pox - Past Surgical History Musculoskeletal Surgical History: Reports: Amputation Social & Family History - Family History Family Medical History: Noncontributory - Caffeine Use Caffeine Use: Reports: Soda - Living Situation & Occupation Living situation: Reports: with Family Occupation: Employed Review of Systems - Review of Systems Review Of Systems: ROS reveals no pertinent complaints other than HPI. ED EXAM, GENERAL - Physical Exam Exam: See Below Exam Limited By: No Limitations General Appearance: Alert, WD/WN, Mild Distress, Other (tearful) Ears: Hearing Grossly Normal Throat/Mouth: Normal Voice, No Airway Compromise Head: Atraumatic Neck: Non-Tender, Full Range of Motion Respiratory/Chest: No Respiratory Distress Cardiovascular: Regular Rate, Rhythm GI/Abdominal: Soft, Non-Tender Extremities: Other (left stump tender mild swelling no s/s cellulitis/ lymphangitis) Neurological: Alert, Oriented, Normal Cognition, No Motor/Sensory Deficits Psychiatric: Tearful Skin Exam: Warm, Dry, Normal Color Lymphatic: No Adenopathy Course - Vital Signs Last Recorded V/S: Last Vital Signs Temp 36.1 C 07/08/18 21:41 Pulse 81 07/08/18 21:41 Resp 18 07/08/18 21:41 BP 169/66 H 07/08/18 21:41 Pulse Ox 98 07/08/18 21:41 - Orders/Labs/Meds Meds: Medications Discontinued Medications Generic Name Dose Route Start Last Admin Trade Name Freq PRN Reason Stop Dose Admin Hydrocodone Bitart/Acetaminophen 1 tab 07/08/18 21:48 07/08/18 21:59 [place] 325-10 Mg PO 07/08/18 21:49 1 tab ONETIME ONE Administration Departure - Departure Time of Disposition: 22:00 Disposition: Home, Self-Care 01 Condition: Fair Clinical Impression: Status post amputation of extremity - Discharge Information Instructions: Stump and Prosthesis Care Referrals: PCP,None [Primary Care Provider] - Forms: ED Department Discharge Additional Instructions: 1) keep wound clean dry 2) follow up at clinic rx given; vicodin 5/325mg bid prn x 6
[2018-07-08 22:20] VITALS: BP 169/66; PULSE 81
== END 2018-07-08 22:01 | disposition home or self-care (01) ==
LOC: EDBD → DL.ED 20:29
DX: T87.89 Other complications of amputation stump (principal); Z89.512 Acquired absence of left leg below knee; E10.9 Type 1 diabetes mellitus without complications; Z79.84 Long term (current) use of oral hypoglycemic drugs; Z79.899 Other long term (current) drug therapy; Z88.1 Allergy status to other antibiotic agents; Z88.8 Allergy status to other drugs, medicaments and biological substances
CPT/HCPCS: 99283; A9270

== ENCOUNTER 2018-11-04 20:51 | Emergency (ER) | payer MEDICARE, MEDICAID ==
[2018-11-04 20:59] VITALS: BP 133/60
[2018-11-04] MEDS ORDERED: Clindamycin Phosphate 900 MG in Sodium Chloride 0.9% 100 ML IV ONE (21:09)
--- NOTE | 2018-11-04 21:12 | EDM.PDOC ---
ED HPI GENERAL MEDICAL PROBLEM - General Chief Complaint: Lower Extremity Injury/Pain Stated Complaint: LEG IS BOTHERING HER-INFECTION? Time Seen by Provider: 11/04/18 21:10 Source of Information: Reports: Patient History Limitations: Reports: No Limitations - History of Present Illness INITIAL COMMENTS - FREE TEXT/NARRATIVE: c/o recurrent stump infection been smelling bad again. 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 Left Stump Pain Score (Numeric/FACES): 8 - Related Data Allergies Allergy/AdvReac Type Severity Reaction Status Date / Time ciprofloxacin [From Cipro] Allergy Severe Hives Verified 07/08/18 21:00 ciprofloxacin HCl Allergy Severe Hives Verified 07/08/18 21:00 [From Cipro] piperacillin sodium Allergy Severe Hives Verified 07/08/18 21:00 [From Zosyn] tazobactam sodium Allergy Severe Hives Verified 07/08/18 21:00 [From Zosyn] piperacillin [From Zosyn] Allergy Unknown Cannot Verified 07/08/18 21:00 Remember tazobactam [From Zosyn] Allergy Unknown Cannot Verified 07/08/18 21:00 Remember Home Meds: Home Meds Pregabalin [Lyrica] 300 mg PO BID 12/05/13 [History] Pioglitazone [Actos] 30 mg PO DAILY 01/01/14 [History] Ibuprofen [Motrin] 800 mg PO Q6H PRN 09/01/14 [History] metFORMIN [Glucophage] 500 mg PO BID 04/21/17 [History] Meclizine [Antivert] 25 mg PO TID PRN #12 tablet 10/03/17 [Rx] Promethazine [Phenergan] 25 mg PO Q6H PRN #12 tablet 10/03/17 [Rx] Past Medical History HEENT History: Reports: None Cardiovascular History: Reports: None Respiratory History: Reports: None Gastrointestinal History: Reports: None Genitourinary History: Reports: None WHEEL CUTTER History: Reports: Other WHEEL CUTTER History: 2 Musculoskeletal History: Reports: Amputation Other Musculoskeletal History: Left Below the knee Neurological History: Reports: None Psychiatric History: Reports: None Endocrine/Metabolic History: Reports: Diabetes, Type I, Obesity/BMI 30+ Hematologic History: Reports: None Immunologic History: Reports: None Oncologic (Cancer) History: Reports: None Dermatologic History: Reports: None - Infectious Disease History Infectious Disease History: Reports: Chicken Pox - Past Surgical History Musculoskeletal Surgical History: Reports: Amputation Social & Family History - Family History Family Medical History: Noncontributory - Tobacco Use Smoking Status *Q: Current Every Day Smoker Years of Tobacco use: 34 Packs/Tins Daily: 0.5 Used Tobacco, but Quit: No Second Hand Smoke Exposure: Yes - Caffeine Use Caffeine Use: Reports: Coffee - Recreational Drug Use Recreational Drug Use: No - Living Situation & Occupation Living situation: Reports: with Family Occupation: Employed Review of Systems - Review of Systems Review Of Systems: ROS reveals no pertinent complaints other than HPI. ED EXAM, GENERAL - Physical Exam Exam: See Below Exam Limited By: No Limitations General Appearance: Alert, WD/WN, Mild Distress, Other (tearful) Ears: Hearing Grossly Normal Throat/Mouth: Normal Voice, No Airway Compromise Head: Atraumatic Neck: Non-Tender, Full Range of Motion Respiratory/Chest: No Respiratory Distress Cardiovascular: Regular Rate, Rhythm GI/Abdominal: Soft, Non-Tender Extremities: Increased Warmth, Redness, Other (left stump erythema tender odious no lymphangitis, no gross drainage at present) Neurological: Alert, Oriented, Normal Cognition, No Motor/Sensory Deficits Psychiatric: Tearful Skin Exam: Warm, Dry, Normal Color Lymphatic: No Adenopathy Course - Vital Signs Last Recorded V/S: Last Vital Signs Temp 36.1 C 11/04/18 20:56 Pulse 93 11/04/18 20:56 Resp 18 11/04/18 20:56 BP 133/60 11/04/18 20:56 Pulse Ox 95 11/04/18 20:56 - Orders/Labs/Meds Labs: Laboratory Tests 11/04/18 11/04/18 11/04/18 Range/Units 21:30 21:30 21:30 WBC 10.6 H (5.0-10.0) 10^3/uL RBC 4.07 L (4.2-5.4) 10^6/uL Hgb 12.6 (12.0-16.0) g/dL Hct 38.2 (37.0-47.0) % MCV 93.9 (80-100) fL MCH 31.0 (27.0-34.0) pg MCHC 33.0 (33.0-35.0) g/dL Plt Count 243 (150-450) 10^3/uL Neut % (Auto) 56.1 (42.2-75.2) % Lymph % (Auto) 34.4 (20.5-50.1) % [place] % (Auto) 8.2 H (2-8) % Eos % (Auto) 1.0 (1.0-3.0) % Baso % (Auto) 0.3 (0.0-1.0) % Sodium 139 (135-145) mmol/L Potassium 3.2 L (3.6-5.0) mmol/L Chloride 105 (101-111) mmol/L Carbon Dioxide 25.0 (21.0-31.0) mmol/L Anion Gap 12.2 BUN 7 (7-18) mg/dL Creatinine 0.6 (0.6-1.3) mg/dL Est Cr Clr Drug Dosing 94.71 mL/min Estimated GFR (MDRD) > 60 BUN/Creatinine Ratio 11.66 Glucose 93 (74-105) mg/dL Lactic Acid 1.2 (0.5-2.2) mmol/L Calcium 8.4 (8.4-10.2) mg/dl Total Bilirubin 0.6 (0.2-1.0) mg/dL AST 18 (10-42) IU/L ALT 15 (10-60) IU/L Alkaline Phosphatase 110 (42-121) IU/L Total Protein 6.1 L (6.7-8.2) g/dl Albumin 3.2 (3.2-5.5) g/dl Globulin 2.9 Albumin/Globulin Ratio 1.10 Meds: Medications Discontinued Medications Generic Name Dose Route Start Last Admin Trade Name Freq PRN Reason Stop Dose Admin Hydrocodone Bitart/Acetaminophen 1 tab 11/04/18 21:36 11/04/18 21:43 [place] 325-10 Mg PO 11/04/18 21:37 1 tab ONETIME ONE Administration Clindamycin Phosphate 900 mg/ 106 mls @ 200 mls/hr 11/04/18 21:09 11/04/18 21 :29 Sodium Chloride IV 11/04/18 21:40 200 mls/hr ONETIME ONE Administration - Re-Assessments/Exams Free Text/Narrative Re-Assessment/Exam: 11/04/18 22:10 results discussed with pt Departure - Departure Time of Disposition: 22:10 Disposition: Home, Self-Care 01 Condition: Fair Clinical Impression: Infection of amputation stump of left lower extremity - Discharge Information Instructions: Stump and Prosthesis Care Forms: ED Department Discharge Additional Instructions: 1) clean stump at least one to two times daily 2) let stump air when not using it. 3) follow up at clinic rx given; clindamycin 300mg qid x 40
[2018-11-04] MEDS ORDERED: Acetaminophen/HYDROcodone 325-10 MG Tab PO ONE (21:36)
[2018-11-04 21:54] LABS: ANION GAP 12.2; CHLORIDE,CL 105 mmol/L (101-111); SODIUM,NA 139 mmol/L (135-145)
== END 2018-11-04 22:59 | disposition home or self-care (01) ==
LOC: EDBD 20:51 → DL.ED 20:51
DX: T87.44 Infection of amputation stump, left lower extremity (principal); E10.9 Type 1 diabetes mellitus without complications; E66.9 Obesity, unspecified; F17.210 Nicotine dependence, cigarettes, uncomplicated; Z88.1 Allergy status to other antibiotic agents
CPT/HCPCS: 36415; 73590; 80053; 83605; 85025; 96365; 99284; A9270; J3490; J7050

== ENCOUNTER 2019-01-05 12:56 | Emergency (ER) | payer MEDICARE, MEDICAID, OTHER ==
[2019-01-05 14:37] VITALS: BP 153/42; PULSE 103
--- NOTE | 2019-01-05 15:17 | EDM.PDOC ---
ED HPI GENERAL MEDICAL PROBLEM - General Chief Complaint: General Stated Complaint: FRACTURED RIB? Time Seen by Provider: 01/05/19 14:45 Source of Information: Reports: Patient, RN, RN Notes Reviewed History Limitations: Reports: No Limitations - History of Present Illness INITIAL COMMENTS - FREE TEXT/NARRATIVE: PT to ER with c/o right sided front and back pain. States she slipped last night and fell on the right side. Admits to SOB, chills, productive cough for 2 days. Also admits to burning, frequency, urgency with urination. Denies chest pain, blood in urine. Rates pain 8-9/10. States she took ibuprofen 2-3 hours ago but it is not helping. Patient was triaged and placed back in the waiting room. Patient would come into the ER when doors were open and looking in other patient's rooms looking for someone that was with her also being seen. At one point knocked on the door and asked for pain pills for her rib pain. Was told she would have to be seen by provider before that could happen. 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 Right Lower Chest Pain Score (Numeric/FACES): 7 - Related Data Allergies Allergy/AdvReac Type Severity Reaction Status Date / Time ciprofloxacin [From Cipro] Allergy Severe Hives Verified 01/05/19 13:29 ciprofloxacin HCl Allergy Severe Hives Verified 01/05/19 13:29 [From Cipro] piperacillin sodium Allergy Severe Hives Verified 01/05/19 13:29 [From Zosyn] tazobactam sodium Allergy Severe Hives Verified 01/05/19 13:29 [From Zosyn] piperacillin [From Zosyn] Allergy Unknown Cannot Verified 01/05/19 13:29 Remember tazobactam [From Zosyn] Allergy Unknown Cannot Verified 01/05/19 13:29 Remember Home Meds: Home Meds Pregabalin [Lyrica] 300 mg PO BID 12/05/13 [History] Pioglitazone [Actos] 30 mg PO DAILY 01/01/14 [History] Ibuprofen [Motrin] 800 mg PO Q6H PRN 09/01/14 [History] metFORMIN [Glucophage] 500 mg PO BID 04/21/17 [History] Meclizine [Antivert] 25 mg PO TID PRN #12 tablet 10/03/17 [Rx] Past Medical History HEENT History: Reports: None Cardiovascular History: Reports: None Respiratory History: Reports: None Gastrointestinal History: Reports: None Genitourinary History: Reports: None FORMULATOR History: Reports: Other FORMULATOR History: 2 Musculoskeletal History: Reports: Amputation Other Musculoskeletal History: Left Below the knee Neurological History: Reports: None Psychiatric History: Reports: None Endocrine/Metabolic History: Reports: Diabetes, Type I, Obesity/BMI 30+ Hematologic History: Reports: None Immunologic History: Reports: None Oncologic (Cancer) History: Reports: None Dermatologic History: Reports: None - Infectious Disease History Infectious Disease History: Reports: Chicken Pox - Past Surgical History Head Surgeries/Procedures: Reports: None Musculoskeletal Surgical History: Reports: Amputation Social & Family History - Family History Family Medical History: Noncontributory - Tobacco Use Smoking Status *Q: Current Every Day Smoker Years of Tobacco use: 18 Packs/Tins Daily: 1 - Caffeine Use Caffeine Use: Reports: Soda - Recreational Drug Use Recreational Drug Use: No - Living Situation & Occupation Living situation: Reports: with Family Occupation: Employed ED ROS GENERAL - Review of Systems Review Of Systems: ROS reveals no pertinent complaints other than HPI. ED EXAM, GENERAL - Physical Exam Exam: See Below Exam Limited By: No Limitations General Appearance: Alert, WD/WN, No Apparent Distress Eye Exam: Bilateral Eye: EOMI, Normal Inspection Ears: Normal External Exam, Hearing Grossly Normal Nose: Normal Inspection Throat/Mouth: Normal Inspection, Normal Voice, No Airway Compromise Head: Atraumatic, Normocephalic Neck: Normal Inspection, Supple, Non-Tender, Full Range of Motion Respiratory/Chest: No Respiratory Distress, Lungs Clear, Normal Breath Sounds, No Accessory Muscle Use, Chest Non-Tender Cardiovascular: Normal Peripheral Pulses, Regular Rate, Rhythm, No Edema, No Gallop, No JVD, No Murmur, No Rub Peripheral Pulses: 2+: Radial (L), Radial (R) GI/Abdominal: Normal Bowel Sounds, Soft, Non-Tender, No Organomegaly, No Distention, No Abnormal Bruit, No Mass, Pelvis Stable (Female) Exam: Deferred Rectal (Female) Exam: Deferred Back Exam: Normal Inspection, Full Range of Motion. No: CVA Tenderness (L), CVA Tenderness (R) Extremities: Normal Inspection, Normal Range of Motion, Non-Tender, No Pedal Edema, Normal Capillary Refill Neurological: Alert, Oriented, CN II-XII Intact, Normal Cognition, Normal Gait, Normal Reflexes, No Motor/Sensory Deficits Psychiatric: Flat Affect Skin Exam: Warm, Dry, Intact, Normal Color, No Rash. No: Ecchymosis Lymphatic: No Adenopathy Course - Vital Signs Last Recorded V/S: Last Vital Signs Temp 97.4 F 01/05/19 14:36 Pulse 103 H 01/05/19 14:36 Resp 20 01/05/19 14:36 BP 153/42 H 01/05/19 14:36 Pulse Ox 99 01/05/19 14:36 - Orders/Labs/Meds Orders: Active Orders 24 hr Category Date Time Status Ribs 2V w Chest Rt [CR] Urgent Exams 01/05/19 14:50 Ordered UA RFX SAVANAH AND CULT IF INDIC [URIN] Stat Lab 01/05/19 14:50 Ordered Departure - Departure Time of Disposition: 15:12 Disposition: Eloped 07 Condition: Good Clinical Impression: Rib pain on right side - Discharge Information *PRESCRIPTION DRUG MONITORING PROGRAM REVIEWED*: Yes *COPY OF PRESCRIPTION DRUG MONITORING REPORT IN PATIENT MOHINI: No Forms: ED Department Discharge, Refusal of Care AMA - My Orders Last 24 Hours: My Active Orders 01/05/19 14:50 Ribs 2V w Chest Rt [CR] Urgent UA RFX SAVANAH AND CULT IF INDIC [URIN] Stat - Assessment/Plan Last 24 Hours: My Active Orders 01/05/19 14:50 Ribs 2V w Chest Rt [CR] Urgent UA RFX SAVANAH AND CULT IF INDIC [URIN] Stat
== END 2019-01-05 15:07 | disposition left against medical advice (07) ==
LOC: DL.ED 12:56
DX: R07.9 Chest pain, unspecified (principal); E11.9 Type 2 diabetes mellitus without complications; E66.9 Obesity, unspecified; F17.210 Nicotine dependence, cigarettes, uncomplicated; Z88.1 Allergy status to other antibiotic agents; Z91.09 Other allergy status, other than to drugs and biological substances
CPT/HCPCS: 99283

== ENCOUNTER 2019-03-07 14:11 | Emergency (ER) | payer MEDICARE, MEDICAID ==
[2019-03-07 14:23] VITALS: BP 137/51; PULSE 99
--- NOTE | 2019-03-07 14:41 | EDM.PDOC ---
ED HPI GENERAL MEDICAL PROBLEM - General Chief Complaint: Upper Extremity Injury/Pain Stated Complaint: AMBULANCE Time Seen by Provider: 03/07/19 14:25 Source of Information: Reports: Patient, EMS, Old Records, RN, RN Notes Reviewed History Limitations: Reports: No Limitations - History of Present Illness INITIAL COMMENTS - FREE TEXT/NARRATIVE: Pt arrives to ER by ambulance with c/o right wrist injury and pain sustained from a ground level fall when pt slipped on ice outside her home. Denies head injury, neck pain, or any other injury. Pt rates the pain 9/10. Nothing alleviates the pain. The pain is aggravated by ROM and palpation of the right wrist. Onset: Today, Sudden Duration: Constant Location: Reports: Upper Extremity, Right Quality: Reports: Ache Severity: Severe Improves with: Reports: None Worsens with: Reports: Movement Context: Reports: Other (Fall) Associated Symptoms: Reports: No Other Symptoms Right Wrist Pain Score (Numeric/FACES): 7 - Related Data Allergies Allergy/AdvReac Type Severity Reaction Status Date / Time ciprofloxacin [From Cipro] Allergy Severe Hives Verified 03/07/19 14:30 ciprofloxacin HCl Allergy Severe Hives Verified 03/07/19 14:30 [From Cipro] piperacillin sodium Allergy Severe Hives Verified 03/07/19 14:30 [From Zosyn] tazobactam sodium Allergy Severe Hives Verified 03/07/19 14:30 [From Zosyn] piperacillin [From Zosyn] Allergy Unknown Cannot Verified 03/07/19 14:30 Remember tazobactam [From Zosyn] Allergy Unknown Cannot Verified 03/07/19 14:30 Remember Home Meds: Home Meds Pregabalin [Lyrica] 300 mg PO BID 12/05/13 [History] Pioglitazone [Actos] 30 mg PO DAILY 01/01/14 [History] Ibuprofen [Motrin] 800 mg PO Q6H PRN 09/01/14 [History] metFORMIN [Glucophage] 500 mg PO BID 04/21/17 [History] Meclizine [Antivert] 25 mg PO TID PRN #12 tablet 10/03/17 [Rx] Past Medical History HEENT History: Reports: None Cardiovascular History: Reports: None Respiratory History: Reports: None Gastrointestinal History: Reports: None Genitourinary History: Reports: None 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 Musculoskeletal History: Reports: Amputation Other Musculoskeletal History: Left Below the knee Neurological History: Reports: None Psychiatric History: Reports: None Endocrine/Metabolic History: Reports: Diabetes, Type I, Obesity/BMI 30+ Hematologic History: Reports: None Immunologic History: Reports: None Oncologic (Cancer) History: Reports: None Dermatologic History: Reports: None - Infectious Disease History Infectious Disease History: Reports: Chicken Pox - Past Surgical History Head Surgeries/Procedures: Reports: None Musculoskeletal Surgical History: Reports: Amputation Social & Family History - Family History Family Medical History: Noncontributory - Tobacco Use Smoking Status *Q: Current Every Day Smoker Years of Tobacco use: 18 Packs/Tins Daily: 1 - Caffeine Use Caffeine Use: Reports: Coffee, Soda - Recreational Drug Use Recreational Drug Use: No - Living Situation & Occupation Living situation: Reports: with Family Occupation: Employed Review of Systems - Review of Systems Review Of Systems: Comprehensive ROS is negative, except as noted in HPI. ED EXAM, GENERAL - Physical Exam Exam: See Below Exam Limited By: No Limitations General Appearance: Alert, No Apparent Distress, Obese Head: Atraumatic, Normocephalic Neck: Normal Inspection, Supple, Non-Tender, Full Range of Motion Respiratory/Chest: No Respiratory Distress Cardiovascular: Normal Peripheral Pulses Peripheral Pulses: 3+: Radial (L), Radial (R) Back Exam: Normal Inspection. No: Vertebral Tenderness Extremities: Normal Capillary Refill, Arm Pain (Tender to palpation of right wrist with mild soft tissue swelling and bruising, no visible deformity. The skin is intact.) Neurological: Alert, Oriented, No Motor/Sensory Deficits Psychiatric: Normal Affect, Normal Mood Skin Exam: Warm, Dry, Intact, Normal Color, No Rash ED TRAUMA EXTREMITY PROCEDURES - Splinting Right Upper Extremity Splint Site: Rt Wrist Pre-Procedure NV Status: Normal Post-Procedure NV Status: Normal Splint Material: Fiberglass Splint Design: Volar Applied & Form Fitted By: Nurse Provider Post-Splint Application NV Check: NV Status Normal, Good Position Complications: No Course - Vital Signs Last Recorded V/S: Last Vital Signs Temp 98.3 F 03/07/19 14:17 Pulse 99 03/07/19 14:17 Resp 16 03/07/19 14:17 BP 137/51 L 03/07/19 14:17 Pulse Ox 100 03/07/19 14:17 - Orders/Labs/Meds Orders: Active Orders 24 hr Category Date Time Status Wrist Comp Min 3V Rt [CR] Urgent Exams 03/07/19 14:17 Taken Acetaminophen/HYDROcodone [[place] 325-10 MG] Med 03/07/19 15:03 Once 1 tab PO ONETIME ONE Medication Orders Hydrocodone Bitart/Acetaminophen ([place] 325-10 Mg) 1 tab PO ONETIME ONE Stop: 03/07/19 15:04 Meds: Medications Generic Name Dose Route Start Last Admin Trade Name Alisa PRN Reason Stop Dose Admin Hydrocodone Bitart/Acetaminophen 1 tab 03/07/19 15:03 [place] 325-10 Mg PO 03/07/19 15:04 ONETIME ONE Departure - Departure Time of Disposition: 15:04 Disposition: Home, Self-Care 01 Condition: Good Clinical Impression: Fracture of right ulnar styloid Qualifiers: Encounter type: initial encounter Fracture type: closed Fracture alignment: nondisplaced Qualified Code(s): S52.614A - Nondisplaced fracture of right ulna styloid process, initial encounter for closed fracture - Discharge Information *PRESCRIPTION DRUG MONITORING PROGRAM REVIEWED*: No *COPY OF PRESCRIPTION DRUG MONITORING REPORT IN PATIENT MOHINI: No Instructions: Wrist Fracture Treated With Immobilization, [id number] Forms: ED Department Discharge Additional Instructions: Rx: Hydrocodone APAP 10mg/325mg *Do not drive while under the influence of this medication. Do not removed splint until seen in clinic. Follow up in clinic with your primary doctor within the next one week. Sepsis Event Note - Evaluation Sepsis Screening Result: No Definite Risk - Focused Exam Vital Signs: Vital Signs Temp Pulse Resp BP Pulse Ox 03/07/19 14:17 98.3 F 99 16 137/51 L 100 Date Exam was Performed: 03/07/19 Time Exam was Performed: 15:03 - My Orders Last 24 Hours: My Active Orders 03/07/19 14:17 Wrist Comp Min 3V Rt [CR] Urgent 03/07/19 15:03 Acetaminophen/HYDROcodone [[place] 325-10 MG] 1 tab PO ONETIME ONE - Assessment/Plan Last 24 Hours: My Active Orders 03/07/19 14:17 Wrist Comp Min 3V Rt [CR] Urgent 03/07/19 15:03 Acetaminophen/HYDROcodone [[place] 325-10 MG] 1 tab PO ONETIME ONE
[2019-03-07] MEDS ORDERED: Acetaminophen/HYDROcodone 325-10 MG Tab PO ONE (15:03)
[2019-03-07] MEDS ORDERED: Acetaminophen/HYDROcodone 325-10 MG Tab ONE (15:07)
== END 2019-03-07 15:15 | disposition home or self-care (01) ==
LOC: DL.ED 14:11
DX: S52.614A Nondisplaced fracture of right ulna styloid process, initial encounter for closed fracture (principal); W01.0XXA Fall on same level from slipping, tripping and stumbling without subsequent striking against object, initial encounter; E66.9 Obesity, unspecified; E10.9 Type 1 diabetes mellitus without complications; F17.210 Nicotine dependence, cigarettes, uncomplicated; Z68.35 Body mass index [BMI] 35.0-35.9, adult; Z88.1 Allergy status to other antibiotic agents; Z79.899 Other long term (current) drug therapy; Z79.84 Long term (current) use of oral hypoglycemic drugs; Z89.512 Acquired absence of left leg below knee
CPT/HCPCS: 29125; 73110; 99283; A9270

== ENCOUNTER 2019-04-03 21:19 | Emergency (ER) | payer MEDICARE, MEDICAID ==
[2019-04-03 21:44] VITALS: BP 169/89; PULSE 91
--- NOTE | 2019-04-03 22:05 | EDM.PDOC ---
ED HPI GENERAL MEDICAL PROBLEM - General Chief Complaint: Chest Pain Stated Complaint: CHEST PAIN. Time Seen by Provider: 04/03/19 21:50 Source of Information: Reports: Patient, RN, RN Notes Reviewed History Limitations: Reports: No Limitations - History of Present Illness INITIAL COMMENTS - FREE TEXT/NARRATIVE: patient to ER with complaint of right-sided chest pain, right upper back pain that began Wednesday. Patient was the passenger in the ambulance that came from [place] with another patient. Patient states she was unable to get anywhere to be checked out for this chest pain and back pain. patient states she has not had any nausea or vomiting, admits to fever and chills at times, and a cough recently. Patient states she is a smoker. Patient denies any drug or alcohol use. Onset: Gradual Onset Date: 04/01/19 Duration: Constant Right Chest Pain Score (Numeric/FACES): 7 - Related Data Allergies Allergy/AdvReac Type Severity Reaction Status Date / Time ciprofloxacin [From Cipro] Allergy Severe Hives Verified 04/03/19 21:38 ciprofloxacin HCl Allergy Severe Hives Verified 04/03/19 21:38 [From Cipro] piperacillin sodium Allergy Severe Hives Verified 04/03/19 21:38 [From Zosyn] tazobactam sodium Allergy Severe Hives Verified 04/03/19 21:38 [From Zosyn] piperacillin [From Zosyn] Allergy Unknown Cannot Verified 04/03/19 21:38 Remember tazobactam [From Zosyn] Allergy Unknown Cannot Verified 04/03/19 21:38 Remember Home Meds: Home Meds Pregabalin [Lyrica] 300 mg PO BID 12/05/13 [History] Pioglitazone [Actos] 30 mg PO DAILY 01/01/14 [History] Ibuprofen [Motrin] 800 mg PO Q6H PRN 09/01/14 [History] metFORMIN [Glucophage] 500 mg PO BID 04/21/17 [History] Meclizine [Antivert] 25 mg PO TID PRN #12 tablet 10/03/17 [Rx] Past Medical History HEENT History: Reports: None Cardiovascular History: Reports: None Respiratory History: Reports: None Gastrointestinal History: Reports: None Genitourinary History: Reports: None 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 Musculoskeletal History: Reports: Amputation Other Musculoskeletal History: Left Below the knee Neurological History: Reports: None Psychiatric History: Reports: None Endocrine/Metabolic History: Reports: Diabetes, Type I, Obesity/BMI 30+ Hematologic History: Reports: None Immunologic History: Reports: None Oncologic (Cancer) History: Reports: None Dermatologic History: Reports: None - Infectious Disease History Infectious Disease History: Reports: Chicken Pox - Past Surgical History Head Surgeries/Procedures: Reports: None Musculoskeletal Surgical History: Reports: Amputation Social & Family History - Family History Family Medical History: Noncontributory - Tobacco Use Smoking Status *Q: Light Tobacco Smoker Years of Tobacco use: 10 Packs/Tins Daily: 0.3 - Caffeine Use Caffeine Use: Reports: Soda - Recreational Drug Use Recreational Drug Use: No - Living Situation & Occupation Living situation: Reports: with Family Occupation: Employed ED ROS GENERAL - Review of Systems Review Of Systems: Comprehensive ROS is negative, except as noted in HPI. ED EXAM, GENERAL - Physical Exam Exam: See Below Exam Limited By: No Limitations General Appearance: Alert, WD/WN, No Apparent Distress Eye Exam: Bilateral Eye: EOMI, Normal Inspection Ears: Normal External Exam, Hearing Grossly Normal Nose: Normal Inspection Throat/Mouth: Normal Inspection, Normal Voice, No Airway Compromise Head: Atraumatic, Normocephalic Neck: Normal Inspection, Supple, Non-Tender, Full Range of Motion Respiratory/Chest: No Respiratory Distress, Lungs Clear (left), No Accessory Muscle Use, Chest Non-Tender, Decreased Breath Sounds (right) Cardiovascular: Normal Peripheral Pulses, Regular Rate, Rhythm, No Edema, No Gallop, No JVD, No Murmur, No Rub Peripheral Pulses: 2+: Radial (L), Radial (R) GI/Abdominal: Normal Bowel Sounds, Soft, Non-Tender, No Organomegaly, No Distention, No Abnormal Bruit, No Mass, Pelvis Stable (Female) Exam: Deferred Rectal (Female) Exam: Deferred Back Exam: Normal Inspection, Full Range of Motion, NT Extremities: Normal Inspection, Normal Range of Motion, Non-Tender, Normal Capillary Refill, No Pedal Edema Neurological: Alert, Oriented, CN II-XII Intact, Normal Cognition, Normal Gait, Normal Reflexes, No Motor/Sensory Deficits Psychiatric: Normal Affect, Normal Mood Skin Exam: Warm, Dry, Intact, Normal Color, No Rash Lymphatic: No Adenopathy Course - Vital Signs Last Recorded V/S: Last Vital Signs Temp 97 F 04/03/19 21:38 Pulse 91 04/03/19 21:38 Resp 18 04/03/19 21:38 BP 169/89 H 04/03/19 21:38 Pulse Ox 99 04/03/19 21:38 - Orders/Labs/Meds Orders: Active Orders 24 hr Category Date Time Status EKG Documentation Completion [RC] STAT Care 04/03/19 21:44 Active Chest 1V Frontal [CR] Stat Exams 04/03/19 21:45 Stop Req Chest 2V [CR] Urgent Exams 04/03/19 21:52 Taken CULTURE URINE [RM] Stat Lab 04/03/19 21:45 Received Labs: Laboratory Tests 04/03/19 04/03/19 04/03/19 Range/Units 21:40 21:40 21:45 WBC 11.4 H (5.0-10.0) 10^3/uL RBC 4.13 L (4.2-5.4) 10^6/uL Hgb 13.2 (12.0-16.0) g/dL Hct 40.5 (37.0-47.0) % MCV 98.1 D (80-100) fL MCH 32.0 (27.0-34.0) pg MCHC 32.6 L (33.0-35.0) g/dL Plt Count 310 (150-450) 10^3/uL Neut % (Auto) 53.4 (42.2-75.2) % Lymph % (Auto) 36.7 (20.5-50.1) % [place] % (Auto) 7.8 (2-8) % Eos % (Auto) 1.9 (1.0-3.0) % Baso % (Auto) 0.2 (0.0-1.0) % Sodium 135 (135-145) mmol/L Potassium 4.4 (3.6-5.0) mmol/L Chloride 101 (101-111) mmol/L Carbon Dioxide 29.0 (21.0-31.0) mmol/L Anion Gap 9.4 BUN 13 (7-18) mg/dL Creatinine 0.7 (0.6-1.3) mg/dL Est Cr Clr Drug Dosing 70.94 mL/min Estimated GFR (MDRD) > 60 BUN/Creatinine Ratio 18.57 Glucose 109 H (74-105) mg/dL Calcium 8.9 (8.4-10.2) mg/dl Total Bilirubin 0.6 (0.2-1.0) mg/dL AST 19 (10-42) IU/L ALT 13 (10-60) IU/L Alkaline Phosphatase 137 H (42-121) IU/L Troponin I < 0.02 (0.00-0.02) ng/ml Total Protein 7.0 (6.7-8.2) g/dl Albumin 3.6 (3.2-5.5) g/dl Globulin 3.4 Albumin/Globulin Ratio 1.06 Urine Color Yellow (YELLOW) Urine Appearance Slightly cloudy (CLEAR) Urine pH 6.0 (5.0-9.0) Ur Specific [place] 1.020 (1.005-1.030) Urine Protein Negative (NEGATIVE) Urine Glucose (UA) Negative (NEGATIVE) Urine Ketones Negative (NEGATIVE) Urine Occult Blood Trace-intact H (NEGATIVE) Urine Nitrite Positive H (NEGATIVE) Urine Bilirubin Negative (NEGATIVE) Urine Urobilinogen 1.0 (0.2-1.0) mg/dL Ur Leukocyte Esterase Small H (NEGATIVE) Urine RBC 0-5 /HPF Urine WBC 10-20 H (0-5/HPF) /HPF Ur Epithelial Cells Few (NOT SEEN) /HPF Amorphous Sediment Few (NOT SEEN) /HPF Urine Bacteria Moderate H (0-FEW/HPF) /HPF Urine Mucus Few H (NOT SEEN) /LPF Urine Opiates Screen (NEGATIVE) Ur Oxycodone Screen (NEGATIVE) Urine Methadone Screen (NEGATIVE) Ur Barbiturates Screen (NEGATIVE) U Tricyclic Antidepress (NEGATIVE) Ur Phencyclidine Scrn (NEGATIVE) Ur Amphetamine Screen (NEGATIVE) U Methamphetamines Scrn (NEGATIVE) Urine MDMA Screen (NEGATIVE) U Benzodiazepines Scrn (NEGATIVE) Urine Cocaine Screen (NEGATIVE) U Marijuana (THC) Screen (NEGATIVE) Ethyl Alcohol < 5 mg/dL 04/03/19 Range/Units 21:45 WBC (5.0-10.0) 10^3/uL RBC (4.2-5.4) 10^6/uL Hgb (12.0-16.0) g/dL Hct (37.0-47.0) % MCV (80-100) fL MCH (27.0-34.0) pg MCHC (33.0-35.0) g/dL Plt Count (150-450) 10^3/uL Neut % (Auto) (42.2-75.2) % Lymph % (Auto) (20.5-50.1) % [place] % (Auto) (2-8) % Eos % (Auto) (1.0-3.0) % Baso % (Auto) (0.0-1.0) % Sodium (135-145) mmol/L Potassium (3.6-5.0) mmol/L Chloride (101-111) mmol/L Carbon Dioxide (21.0-31.0) mmol/L Anion Gap BUN (7-18) mg/dL Creatinine (0.6-1.3) mg/dL Est Cr Clr Drug Dosing mL/min Estimated GFR (MDRD) BUN/Creatinine Ratio Glucose (74-105) mg/dL Calcium (8.4-10.2) mg/dl Total Bilirubin (0.2-1.0) mg/dL AST (10-42) IU/L ALT (10-60) IU/L Alkaline Phosphatase (42-121) IU/L Troponin I (0.00-0.02) ng/ml Total Protein (6.7-8.2) g/dl Albumin (3.2-5.5) g/dl Globulin Albumin/Globulin Ratio Urine Color (YELLOW) Urine Appearance (CLEAR) Urine pH (5.0-9.0) Ur Specific [place] (1.005-1.030) Urine Protein (NEGATIVE) Urine Glucose (UA) (NEGATIVE) Urine Ketones (NEGATIVE) Urine Occult Blood (NEGATIVE) Urine Nitrite (NEGATIVE) Urine Bilirubin (NEGATIVE) Urine Urobilinogen (0.2-1.0) mg/dL Ur Leukocyte Esterase (NEGATIVE) Urine RBC /HPF Urine WBC (0-5/HPF) /HPF Ur Epithelial Cells (NOT SEEN) /HPF Amorphous Sediment (NOT SEEN) /HPF Urine Bacteria (0-FEW/HPF) /HPF Urine Mucus (NOT SEEN) /LPF Urine Opiates Screen Negative (NEGATIVE) Ur Oxycodone Screen Negative (NEGATIVE) Urine Methadone Screen Negative (NEGATIVE) Ur Barbiturates Screen Negative (NEGATIVE) U Tricyclic Antidepress Negative (NEGATIVE) Ur Phencyclidine Scrn Negative (NEGATIVE) Ur Amphetamine Screen Negative (NEGATIVE) U Methamphetamines Scrn Negative (NEGATIVE) Urine MDMA Screen Negative (NEGATIVE) U Benzodiazepines Scrn Negative (NEGATIVE) Urine Cocaine Screen Negative (NEGATIVE) U Marijuana (THC) Screen Negative (NEGATIVE) Ethyl Alcohol mg/dL - Radiology Interpretation Free Text/Narrative:: chest x-ray: FINDINGS: Lungs: Unremarkable. No consolidation. Pleural space: Unremarkable. No pleural effusion. No pneumothorax. Heart/Mediastinum: Unremarkable. No cardiomegaly. Bones/joints: Unremarkable. IMPRESSION: No acute findings. Thank you for allowing us to participate in the care of your patient. Dictated and Authenticated by: Artis Arias MD 04/03/2019 10:43 PM Central Time ([place] & [place]) See radiologist's report Departure - Departure Time of Disposition: 23:01 Disposition: Home, Self-Care 01 Reason for Transfer *Q: Other Condition: Fair Clinical Impression: Pleurisy UTI (urinary tract infection) Qualifiers: Urinary tract infection type: acute cystitis Hematuria presence: without hematuria Qualified Code(s): N30.00 - Acute cystitis without hematuria Instructions: Antibiotic Medicine, Adult, [id number], Urinary Tract Infection , Adult, [id number], Pleurisy, [id number] Forms: ED Department Discharge Additional Instructions: drink plenty of water May use Tylenol and/or ibuprofen as directed for pain Cough and deep breathe frequently Rx: Macrobid 100 mg orally twice daily for 5 days Sepsis Event Note - Evaluation Sepsis Screening Result: No Definite Risk - Focused Exam Vital Signs: Vital Signs Temp Pulse Resp BP Pulse Ox 04/03/19 21:38 97 F 91 18 169/89 H 99 Date Exam was Performed: 04/03/19 Time Exam was Performed: 23:01 - My Orders Last 24 Hours: My Active Orders 04/03/19 21:44 EKG Documentation Completion [RC] STAT 04/03/19 21:45 Chest 1V Frontal [CR] Stat CULTURE URINE [RM] Stat 04/03/19 21:52 Chest 2V [CR] Urgent - Assessment/Plan Last 24 Hours: My Active Orders 04/03/19 21:44 EKG Documentation Completion [RC] STAT 04/03/19 21:45 Chest 1V Frontal [CR] Stat CULTURE URINE [RM] Stat 04/03/19 21:52 Chest 2V [CR] Urgent
[2019-04-03 22:06] LABS: ANION GAP 9.4; CHLORIDE,CL 101 mmol/L (101-111); SODIUM,NA 135 mmol/L (135-145)
[2019-04-03] MEDS ORDERED: Nitrofurantoin Monohydrate/Macrocrystalline 100 MG Cap PO ONE (23:01)
== END 2019-04-03 23:18 | disposition home or self-care (01) ==
LOC: DL.ED 21:19
DX: R09.1 Pleurisy (principal); N30.00 Acute cystitis without hematuria; F17.210 Nicotine dependence, cigarettes, uncomplicated; E10.9 Type 1 diabetes mellitus without complications; E66.9 Obesity, unspecified; Z79.84 Long term (current) use of oral hypoglycemic drugs; Z79.899 Other long term (current) drug therapy; Z88.8 Allergy status to other drugs, medicaments and biological substances; Z88.1 Allergy status to other antibiotic agents
CPT/HCPCS: 36415; 71046; 80053; 80305; 81001; 84484; 85025; 87086; 93005; 99285; A9270; G0480; 87088; 87186

== ENCOUNTER 2020-04-23 16:03 | Emergency (ER) | payer MEDICARE, MEDICAID ==
--- NOTE | 2020-04-23 16:06 | EDM.PDOC ---
ED HPI GENERAL MEDICAL PROBLEM - General Chief Complaint: Lower Extremity Injury/Pain Stated Complaint: FALL, LEG INJURY Time Seen by Provider: 04/23/20 16:04 Source of Information: Reports: Patient, EMS, Old Records, RN, RN Notes Reviewed History Limitations: Reports: No Limitations - History of Present Illness INITIAL COMMENTS - FREE TEXT/NARRATIVE: Pt presents to ED via POV with c/o right ankle injury. Pt states that she was walking into her house and her prosthetic leg gave out and she heard a "pop" on her right ankle. Pt has pain to lateral area of ankle. Pt rates pain at a 7/10. Also hurt her right wrist. Denies any other injury. Onset: Today, Sudden Duration: Constant Quality: Reports: Ache Severity: Severe Improves with: Reports: Movement Worsens with: Reports: Immobilization Context: Reports: Other (Fall) Associated Symptoms: Reports: No Other Symptoms Right Ankle Pain Score (Numeric/FACES): 7 - Related Data Allergies Allergy/AdvReac Type Severity Reaction Status Date / Time ciprofloxacin [From Cipro] Allergy Severe Hives Verified 04/23/20 16:09 ciprofloxacin HCl Allergy Severe Hives Verified 04/23/20 16:09 [From Cipro] piperacillin sodium Allergy Severe Hives Verified 04/23/20 16:09 [From Zosyn] tazobactam sodium Allergy Severe Hives Verified 04/23/20 16:09 [From Zosyn] Home Meds: Home Meds Pregabalin [Lyrica] 300 mg PO BID 12/05/13 [History] Pioglitazone [Actos] 30 mg PO DAILY 01/01/14 [History] Ibuprofen [Motrin] 800 mg PO Q6H PRN 09/01/14 [History] metFORMIN [Glucophage] 500 mg PO BID 04/21/17 [History] Meclizine [Antivert] 25 mg PO TID PRN #12 tablet 10/03/17 [Rx] Past Medical History HEENT History: Reports: None Cardiovascular History: Reports: None Respiratory History: Reports: None Gastrointestinal History: Reports: None Genitourinary History: Reports: None 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 Musculoskeletal History: Reports: Amputation Other Musculoskeletal History: Left Below the knee Neurological History: Reports: None Psychiatric History: Reports: None Endocrine/Metabolic History: Reports: Diabetes, Type I, Obesity/BMI 30+ Hematologic History: Reports: None Immunologic History: Reports: None Oncologic (Cancer) History: Reports: None Dermatologic History: Reports: None - Infectious Disease History Infectious Disease History: Reports: Chicken Pox - Past Surgical History Head Surgeries/Procedures: Reports: None Musculoskeletal Surgical History: Reports: Amputation Social & Family History - Family History Family Medical History: No Pertinent Family History - Caffeine Use Caffeine Use: Reports: Soda - Living Situation & Occupation Living situation: Reports: with Family Occupation: Employed Review of Systems - Review of Systems Review Of Systems: Comprehensive ROS is negative, except as noted in HPI. ED EXAM, GENERAL - Physical Exam Exam: See Below Exam Limited By: No Limitations General Appearance: Alert, No Apparent Distress, Other (Chronically ill appearing) Throat/Mouth: Normal Voice, No Airway Compromise Head: Atraumatic, Normocephalic Neck: Normal Inspection, Supple, Non-Tender, Full Range of Motion Respiratory/Chest: No Respiratory Distress Cardiovascular: Normal Peripheral Pulses, Regular Rate, Rhythm Back Exam: Normal Inspection. No: Vertebral Tenderness Extremities: Normal Capillary Refill, Limited Range of Motion (Rt wrist with no visible swelling, bruising, or deformity.), Other (Generalzied right ankle tenderness, no visible swelling, bruising, or deformity.) Neurological: Alert, Oriented, No Motor/Sensory Deficits Psychiatric: Normal Mood Skin Exam: Warm, Dry Course - Vital Signs Last Recorded V/S: Last Vital Signs Temp 97.3 F 04/23/20 16:09 Pulse 89 04/23/20 16:09 Resp 16 04/23/20 16:09 BP 146/84 H 04/23/20 16:09 Pulse Ox 98 04/23/20 16:09 - Orders/Labs/Meds Orders: Active Orders 24 hr Category Date Time Status Wrist 2V Rt [CR] Urgent Exams 04/23/20 16:55 Ordered Acetaminophen/HYDROcodone [[place] 325-10 MG] Med 04/23/20 16:56 Once 1 tab PO ONETIME ONE DME for Discharge [COMM] Routine Oth 04/23/20 16:55 Ordered Elastic Wrap [OM.PC] Routine Oth 04/23/20 16:56 Ordered Medication Orders Hydrocodone Bitart/Acetaminophen ([place] 325-10 Mg) 1 tab PO ONETIME ONE Stop: 04/23/20 16:57 Meds: Medications Generic Name Dose Route Start Last Admin Trade Name Alisa PRN Reason Stop Dose Admin Hydrocodone Bitart/Acetaminophen 1 tab 04/23/20 16:56 [place] 325-10 Mg PO 04/23/20 16:57 ONETIME ONE - Radiology Interpretation Free Text/Narrative:: [facility] [place] [facility] Final Radiology Report Call: [phone] assistance Online chat: [email or web address] Name: NIKHIL STOCKTON Age: 54Years F Date: 04/23/2020 SSN: -- : [id number] Study: CR ANKLE MIN 3V RT Requesting Physician: DERIC LUZ Images: 3 Addl Studies: Provided Clinical History: Fall, Rt ankle injury Contrast: Contrast Medium: Contrast Amount: Contrast Method: CONFIDENTIALITY STATEMENT This report is intended only for use by the referring physician, and only in accordance with law. If you received this in error, call [phone]. Page 1 of 1 PROCEDURE INFORMATION: Exam: XR Right Ankle Exam date and time: 04/23/2020 4:16 PM Age: 54 years old Clinical indication: Other: Fall, RT ankle injury TECHNIQUE: Imaging protocol: XR Right ankle. Views: 3 or more views. COMPARISON: No relevant prior studies available. FINDINGS: Bones/joints: Bones appear mildly osteopenic. No fractures. Soft tissues: Vascular calcification. IMPRESSION: No acute findings. Thank you for allowing us to participate in the care of your patient. Dictated and Authenticated by: Matti Tovar MD 04/23/2020 4:33 PM Central Time ([place] & [place]) Departure - Departure Time of Disposition: 16:58 Disposition: Home, Self-Care 01 Condition: Good Clinical Impression: Contusion of right wrist, initial encounter Right ankle sprain Qualifiers: Encounter type: initial encounter Involved ligament of ankle: unspecified ligament Qualified Code(s): S93.401A - Sprain of unspecified ligament of right ankle, initial encounter - Discharge Information *PRESCRIPTION DRUG MONITORING PROGRAM REVIEWED*: Not Applicable *COPY OF PRESCRIPTION DRUG MONITORING REPORT IN PATIENT MOHINI: Not Applicable Instructions: Ankle Sprain, [id number], Contusion, [id number] Forms: ED Department Discharge Additional Instructions: [place]QU[place] wrap right ankle as needed for comfort. Use wheelchair, crutches, or walker. Rx: Ultram 50mg Follow up in clinic tomorrow for assistance with walker if needed, and for referral for new prosthetic leg if needed. Sepsis Event Note (ED) - Focused Exam Vital Signs: Vital Signs Temp Pulse Resp BP Pulse Ox 04/23/20 16:09 97.3 F 89 16 146/84 H 98 - My Orders Last 24 Hours: My Active Orders 04/23/20 16:55 Wrist 2V Rt [CR] Urgent DME for Discharge [COMM] Routine 04/23/20 16:56 Acetaminophen/HYDROcodone [[place] 325-10 MG] 1 tab PO ONETIME ONE Elastic Wrap [OM.PC] Routine - Assessment/Plan Last 24 Hours: My Active Orders 04/23/20 16:55 Wrist 2V Rt [CR] Urgent DME for Discharge [COMM] Routine 04/23/20 16:56 Acetaminophen/HYDROcodone [[place] 325-10 MG] 1 tab PO ONETIME ONE Elastic Wrap [OM.PC] Routine
[2020-04-23 16:12] VITALS: BP 146/84; PULSE 89
--- NOTE | 2020-04-23 16:33 | CR ---
PROCEDURE INFORMATION: Exam: XR Right Ankle Exam date and time: 04/23/2020 4:16 PM Age: 54 years old Clinical indication: Other: Fall, RT ankle injury TECHNIQUE: Imaging protocol: XR Right ankle. Views: 3 or more views. COMPARISON: No relevant prior studies available. FINDINGS: Bones/joints: Bones appear mildly osteopenic. No fractures. Soft tissues: Vascular calcification. IMPRESSION: No acute findings.
[2020-04-23] MEDS ORDERED: Acetaminophen/HYDROcodone 325-10 MG Tab PO ONE (16:56)
--- NOTE | 2020-04-23 17:32 | CR ---
PROCEDURE INFORMATION: Exam: XR Right Wrist Exam date and time: 04/23/2020 5:05 PM Age: 54 years old Clinical indication: Injury or trauma; Fall; Blunt trauma (contusions or hematomas); Wrist; Right; Additional info: Fall RT wrist pain TECHNIQUE: Imaging protocol: XR Right wrist. Views: 1 or 2 views. COMPARISON: No relevant prior studies available. FINDINGS: Bones/joints: Bones osteopenic. Old nonunited ulnar styloid fracture. Soft tissues: Moderate vascular calcification. IMPRESSION: No acute findings
== END 2020-04-23 17:40 | disposition home or self-care (01) ==
LOC: DL.ED 16:03
DX: S93.401A Sprain of unspecified ligament of right ankle, initial encounter (principal); S60.211A Contusion of right wrist, initial encounter; E10.9 Type 1 diabetes mellitus without complications; E66.9 Obesity, unspecified; Z79.84 Long term (current) use of oral hypoglycemic drugs; Z79.899 Other long term (current) drug therapy; Z88.1 Allergy status to other antibiotic agents; X58.XXXA Exposure to other specified factors, initial encounter
CPT/HCPCS: 73100; 73610; 99284; A9270; 99283

== ENCOUNTER 2020-05-28 13:16 | Emergency (ER) | payer MEDICARE, MEDICAID ==
[2020-05-28 13:26] VITALS: BP 133/49; PULSE 88
--- NOTE | 2020-05-28 13:43 | CT ---
EXAMINATION: Head wo Cont SEX: Female AGE: 54 years CLINICAL HISTORY: 54-year-old diabetic female smoker with acute onset left sided facial droop ([address] scan of the head and brain 30 June 2018 revealed "atheromatous calcifications but no acute intracranial abnormality". Scan technique: Volume acquisition of data emergency unenhanced CT scan of the head and brain obtained with the patient lying supine on the Siemens multislice scanner [place], [place]. All data archived in the PACS system for storage, reformatting axial/sagittal/coronal planes and study. Interpretation: 1. Isolated tiny lacunar type infarcts right cerebral hemisphere (thalamic infarct, on the right, unchanged since June 2018; small lacunar infarct frontal lobe, on the right, new today). Small infarct right parietal convexity. 2. Physiologic midline pineal and symmetric dense choroid plexus calcifications unchanged i.e. no shift. 3. No sign of other ischemic change (infarct), cerebral edema or mass effect. 4. Uniformly thick bony calvarium. Symmetric clear pneumatization paranasal and mastoid sinuses. Nasal septum midline. 5. *No sign of acute intracerebral, intraventricular or subarachnoid bleed. No extracerebral hematomas. 6. Cerebellum and brainstem unremarkable. CONCLUSION: No sign of acute intracranial bleed. Intracranial ischemic changes (see above). No intracranial mass or hydrocephalus. INTERPRETATION: 1. CONCLUSION:
--- NOTE | 2020-05-28 13:43 | EDM.PDOC ---
ED HPI GENERAL MEDICAL PROBLEM - General Stated Complaint: CANT FEEL FACE, LOSING FEELING Time Seen by Provider: 05/28/20 13:25 Source of Information: Reports: Patient History Limitations: Reports: No Limitations - History of Present Illness INITIAL COMMENTS - FREE TEXT/NARRATIVE: This 54 yo female patient reports to the ED due to left sided facial droop and left hand numbness that started 30 minutes prior to her arrival in the ED. The patient reports she was just shopping at the time of symptom onset. The patient reports no history of strokes. The patient does have a history of diabetes. Onset: Today Onset Date: 05/28/20 Onset Time: 12:50 Duration: Minutes: (30), Constant Location: Reports: Face, Upper Extremity, Left Quality: Reports: Other Severity: Moderate Improves with: Reports: None Worsens with: Reports: None Context: Reports: Other Associated Symptoms: Reports: No Other Symptoms - Related Data Allergies Allergy/AdvReac Type Severity Reaction Status Date / Time ciprofloxacin [From Cipro] Allergy Severe Hives Verified 05/28/20 13:42 ciprofloxacin HCl Allergy Severe Hives Verified 05/28/20 13:42 [From Cipro] piperacillin sodium Allergy Severe Hives Verified 05/28/20 13:42 [From Zosyn] tazobactam sodium Allergy Severe Hives Verified 05/28/20 13:42 [From Zosyn] Home Meds: Home Meds Pregabalin [Lyrica] 300 mg PO BID 12/05/13 [History] Pioglitazone [Actos] 15 mg PO DAILY 01/01/14 [History] Ibuprofen [Motrin] 800 mg PO Q6H PRN 09/01/14 [History] metFORMIN [Glucophage] 500 mg PO BID 04/21/17 [History] Meclizine [Antivert] 25 mg PO TID PRN #12 tablet 10/03/17 [Rx] Ondansetron [Zofran ODT] 4 mg PO Q6H PRN 05/28/20 [History] lisinopriL [Lisinopril] 20 mg PO DAILY 05/28/20 [History] Past Medical History HEENT History: Reports: None Cardiovascular History: Reports: None Respiratory History: Reports: None Gastrointestinal History: Reports: None Genitourinary History: Reports: None 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 Musculoskeletal History: Reports: Amputation Other Musculoskeletal History: Left Below the knee Neurological History: Reports: None Psychiatric History: Reports: None Endocrine/Metabolic History: Reports: Diabetes, Type II, Obesity/BMI 30+ Hematologic History: Reports: None Immunologic History: Reports: None Oncologic (Cancer) History: Reports: None Dermatologic History: Reports: None - Infectious Disease History Infectious Disease History: Reports: Chicken Pox - Past Surgical History Head Surgeries/Procedures: Reports: None Musculoskeletal Surgical History: Reports: Amputation Other Musculoskeletal Surgeries/Procedures:: Left BKA Social & Family History - Family History Family Medical History: No Pertinent Family History - Caffeine Use Caffeine Use: Reports: Coffee - Living Situation & Occupation Living situation: Reports: with Family Occupation: Employed ED ROS GENERAL - Review of Systems Review Of Systems: Comprehensive ROS is negative, except as noted in HPI. ED EXAM, NEURO - Physical Exam Exam: See Below Exam Limited By: No Limitations General Appearance: Alert, WD/WN, Moderate Distress, Obese Eye Exam: Bilateral Eye: EOMI, Normal Inspection, PERRL Ears: Normal External Exam, Normal Canal, Hearing Grossly Normal, Normal TMs Nose: Normal Inspection, Normal Mucosa, No Blood Throat/Mouth: Other (left sided facial droop ) Head Exam: Atraumatic, Normocephalic Neck: Normal Inspection, Supple, Non-Tender, Full Range of Motion Respiratory/Chest: No Respiratory Distress, Lungs Clear, Normal Breath Sounds, No Accessory Muscle Use, Chest Non-Tender Cardiovascular: Normal Peripheral Pulses, Regular Rate, Rhythm, No Edema, No Gallop, No JVD, No Murmur, No Rub GI/Abdominal: Normal Bowel Sounds, Soft, Non-Tender, No Organomegaly, No Distention, No Abnormal Bruit, No Mass (Female) Exam: Deferred Rectal (Female) Exam: Deferred Neurological: Alert, Normal Mood/Affect, Normal Gait, Normal Reflexes, Oriented x 3, Other (left sided facial droop ) Back Exam: Normal Inspection, Full Range of Motion, NT Extremities: Normal Inspection, Normal Range of Motion, Non-Tender, No Pedal Edema, Normal Capillary Refill Psychiatric: Normal Affect, Normal Mood Skin Exam: Warm, Dry, Intact, Normal Color, No Rash #1 Interpretation EKG Date: 05/28/20 Time: 13:35 Rhythm: NSR [place]: Normal P-Wave: Present QRS: Normal ST-T: Normal QT: Normal Comparison: No Change Course - Vital Signs Last Recorded V/S: Last Vital Signs Temp 36.4 C 05/28/20 13:25 Pulse 88 05/28/20 13:25 Resp 13 05/28/20 13:25 BP 133/49 L 05/28/20 13:25 Pulse Ox 99 05/28/20 13:25 - Orders/Labs/Meds Orders: Active Orders 24 hr Category Date Time Status EKG Documentation Completion [RC] STAT Care 05/28/20 13:18 Active Glucose [Blood Glucose Check, Bedside] [RC] ONETIME Care 05/28/20 13:18 Active CULTURE BLOOD [BC] Stat Lab 05/28/20 13:18 Ordered CULTURE URINE [RM] Urgent Lab 05/28/20 14:07 Received Labs: Laboratory Tests 05/28/20 05/28/20 05/28/20 Range/Units 13:21 13:26 13:26 WBC 9.7 (5.0-10.0) 10^3/uL RBC 4.10 L (4.2-5.4) 10^6/uL Hgb 12.4 (12.0-16.0) g/dL Hct 37.9 (37.0-47.0) % MCV 92.4 D (80-100) fL MCH 30.2 (27.0-34.0) pg MCHC 32.7 L (33.0-35.0) g/dL Plt Count 315 (150-450) 10^3/uL Neut % (Auto) 57.3 (42.2-75.2) % Lymph % (Auto) 34.8 (20.5-50.1) % Reeves % (Auto) 6.3 (2-8) % Eos % (Auto) 1.3 (1.0-3.0) % Baso % (Auto) 0.3 (0.0-1.0) % Sodium 140 (136-145) mmol/L Potassium 4.0 (3.5-5.1) mmol/L Chloride 105 (98-107) mmol/L Carbon Dioxide 26 (21-32) mmol/L Anion Gap 13.0 (7-13) mEq/L BUN 6 L (7-18) mg/dL Creatinine 0.61 (0.55-1.02) mg/dL Est Cr Clr Drug Dosing 92.10 mL/min Estimated GFR (MDRD) > 60 BUN/Creatinine Ratio 9.8 (No establ ref range) Glucose 94 (74-99) mg/dL POC Glucose 103 (70-105) mg/dl Lactic Acid (0.4-2.0) mmol/L Calcium 8.5 (8.5-10.1) mg/dL Total Bilirubin 0.4 (0.2-1.0) mg/dL AST 16 (15-37) U/L ALT 17 (14-59) U/L Alkaline Phosphatase 162 H (46-116) U/L Troponin I < 0.017 (0.000-0.056) ng/mL Total Protein 7.2 (6.4-8.2) g/dL Albumin 3.3 L (3.4-5.0) g/dL Globulin 3.9 Albumin/Globulin Ratio 0.85 Urine Color (YELLOW) Urine Appearance (CLEAR) Urine pH (5.0-9.0) Ur Specific [place] (1.005-1.030) Urine Protein (NEGATIVE) Urine Glucose (UA) (NEGATIVE) Urine Ketones (NEGATIVE) Urine Occult Blood (NEGATIVE) Urine Nitrite (NEGATIVE) Urine Bilirubin (NEGATIVE) Urine Urobilinogen (0.2-1.0) mg/dL Ur Leukocyte Esterase (NEGATIVE) Urine RBC /HPF Urine WBC (0-5/HPF) /HPF Ur Epithelial Cells (NOT SEEN) /HPF Urine Bacteria (0-FEW/HPF) /HPF Urine Mucus (NOT SEEN) /LPF 05/28/20 05/28/20 Range/Units 13:26 14:07 WBC (5.0-10.0) 10^3/uL RBC (4.2-5.4) 10^6/uL Hgb (12.0-16.0) g/dL Hct (37.0-47.0) % MCV (80-100) fL MCH (27.0-34.0) pg MCHC (33.0-35.0) g/dL Plt Count (150-450) 10^3/uL Neut % (Auto) (42.2-75.2) % Lymph % (Auto) (20.5-50.1) % Reeves % (Auto) (2-8) % Eos % (Auto) (1.0-3.0) % Baso % (Auto) (0.0-1.0) % Sodium (136-145) mmol/L Potassium (3.5-5.1) mmol/L Chloride (98-107) mmol/L Carbon Dioxide (21-32) mmol/L Anion Gap (7-13) mEq/L BUN (7-18) mg/dL Creatinine (0.55-1.02) mg/dL Est Cr Clr Drug Dosing mL/min Estimated GFR (MDRD) BUN/Creatinine Ratio (No establ ref range) Glucose (74-99) mg/dL POC Glucose (70-105) mg/dl Lactic Acid 0.8 (0.4-2.0) mmol/L Calcium (8.5-10.1) mg/dL Total Bilirubin (0.2-1.0) mg/dL AST (15-37) U/L ALT (14-59) U/L Alkaline Phosphatase (46-116) U/L Troponin I (0.000-0.056) ng/mL Total Protein (6.4-8.2) g/dL Albumin (3.4-5.0) g/dL Globulin Albumin/Globulin Ratio Urine Color Yellow (YELLOW) Urine Appearance Clear (CLEAR) Urine pH 5.5 (5.0-9.0) Ur Specific [place] <= 1.005 (1.005-1.030) Urine Protein Negative (NEGATIVE) Urine Glucose (UA) Negative (NEGATIVE) Urine Ketones Negative (NEGATIVE) Urine Occult Blood Negative (NEGATIVE) Urine Nitrite Negative (NEGATIVE) Urine Bilirubin Negative (NEGATIVE) Urine Urobilinogen 0.2 (0.2-1.0) mg/dL Ur Leukocyte Esterase Trace H (NEGATIVE) Urine RBC Not seen /HPF Urine WBC 0-5 (0-5/HPF) /HPF Ur Epithelial Cells Few (NOT SEEN) /HPF Urine Bacteria Moderate H (0-FEW/HPF) /HPF Urine Mucus Not seen (NOT SEEN) /LPF Departure - Departure Time of Disposition: 14:48 Disposition: Home, Self-Care 01 Condition: Fair Clinical Impression: Mares palsy - Discharge Information *PRESCRIPTION DRUG MONITORING PROGRAM REVIEWED*: Not Applicable *COPY OF PRESCRIPTION DRUG MONITORING REPORT IN PATIENT MOHINI: Not Applicable Instructions: Mares Palsy, Adult Forms: ED Department Discharge Care Plan Goals: The patient was advised of the examination, lab, EKG and CT results during the visit. The patient was given an IV dose of SoluMedrol while in the ED. The patient was discharged with a script for Prednisone (20 mg) #15 to take 3 by mouth daily for 5 days (starting tomorrow). If the patient has any additional symptoms or concerns, the patient should either return to the emergency department or visit her primary care facility. Sepsis Event Note (ED) - Evaluation Sepsis Screening Result: No Definite Risk - Focused Exam Vital Signs: Vital Signs Temp Pulse Resp BP Pulse Ox 05/28/20 13:25 36.4 C 88 13 133/49 L 99 - My Orders Last 24 Hours: My Active Orders 05/28/20 13:18 EKG Documentation Completion [RC] STAT Glucose [Blood Glucose Check, Bedside] [RC] ONETIME CULTURE BLOOD [BC] Stat 05/28/20 14:07 CULTURE URINE [RM] Urgent - Assessment/Plan Last 24 Hours: My Active Orders 05/28/20 13:18 EKG Documentation Completion [RC] STAT Glucose [Blood Glucose Check, Bedside] [RC] ONETIME CULTURE BLOOD [BC] Stat 05/28/20 14:07 CULTURE URINE [RM] Urgent
[2020-05-28 14:00] LABS: CHLORIDE,CL 105 mmol/L (98-107); SODIUM,NA 140 mmol/L (136-145)
[2020-05-28] MEDS ORDERED: methylPREDNISolone Sodium Succinate 40 MG/1 ML SDV IVPUSH ONE (14:39)
== END 2020-05-28 15:00 | disposition home or self-care (01) ==
LOC: DL.ED 13:16
DX: G51.0 Bell's palsy (principal); E11.9 Type 2 diabetes mellitus without complications; E66.9 Obesity, unspecified; Z68.33 Body mass index [BMI] 33.0-33.9, adult; Z88.1 Allergy status to other antibiotic agents; Z88.0 Allergy status to penicillin; Z79.84 Long term (current) use of oral hypoglycemic drugs; Z79.899 Other long term (current) drug therapy
CPT/HCPCS: 36415; 70450; 80053; 81001; 82962; 83605; 84484; 85025; 87040; 87086; 87088; 87186; 93005; 93010; 96374; 99284; 99285; J2920

== ENCOUNTER 2020-06-28 15:22 | Emergency (ER) | payer MEDICARE, MEDICAID ==
[2020-06-28 15:44] VITALS: BP 162/63; PULSE 96
--- NOTE | 2020-06-28 16:16 | CR ---
PROCEDURE INFORMATION: Exam: XR Left Knee Exam date and time: 06/28/2020 4:02 PM Age: 54 years old Clinical indication: Injury or trauma; Fall; Blunt trauma; Knee; Left; Prior surgery; Surgery type: Amputation; Additional info: Pain fall TECHNIQUE: Imaging protocol: XR Left knee. Views: 3 views. COMPARISON: CR Knee 1V or 2V Lt 05/19/2018 7:38 PM FINDINGS: Bones/joints: Stable [id number] amputation. The osseous amputation stumps are unremarkable. Normal anatomic alignment. 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 There is no evidence of acutely displaced fractures. There is no evidence of dislocation. There is no evidence of a joint effusion. There is diffuse osteopenia. Soft tissues: The soft tissue amputation stump is unremarkable. There is no significant soft tissue swelling. IMPRESSION: 1. Negative for acute skeletal pathology. 2. Incidental findings as detailed above.
--- NOTE | 2020-06-28 17:21 | EDM.PDOC ---
<Jason Hewitt - Last Filed: 06/28/20 17:16> ED HPI GENERAL MEDICAL PROBLEM - General Chief Complaint: Lower Extremity Injury/Pain Stated Complaint: PT FELL ON LEFT LEG THINKS SHE BROKE SOMETHING Time Seen by Provider: 06/28/20 17:16 Source of Information: Reports: Patient History Limitations: Reports: No Limitations - History of Present Illness INITIAL COMMENTS - FREE TEXT/NARRATIVE: Diana is a 54 year old female that is seen in the emergency department today for left knee pain following a fall from standing. Diana was standing earlier and had a mechanical fall in which she hit her knee on the ground. She denies hitting her head or losing conciseness before, during or after the fall. 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 She took 500 mg of ibuprofen for the pain prior to coming to the emergency department. She rates her current pain at a 8/10, she describes it as sharp, located around her entire left knee, it worsens with movement. 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 Knee Pain Score (Numeric/FACES): 8 - Related Data Allergies Allergy/AdvReac Type Severity Reaction Status Date / Time ciprofloxacin [From Cipro] Allergy Severe Hives Verified 06/28/20 15:50 ciprofloxacin HCl Allergy Severe Hives Verified 06/28/20 15:50 [From Cipro] piperacillin sodium Allergy Severe Hives Verified 06/28/20 15:50 [From Zosyn] tazobactam sodium Allergy Severe Hives Verified 06/28/20 15:50 [From Zosyn] Home Meds: Home Meds Pregabalin [Lyrica] 300 mg PO BID 12/05/13 [History] Pioglitazone [Actos] 15 mg PO DAILY 01/01/14 [History] Ibuprofen [Motrin] 800 mg PO Q6H PRN 09/01/14 [History] metFORMIN [Glucophage] 500 mg PO BID 04/21/17 [History] lisinopriL [Lisinopril] 20 mg PO DAILY 05/28/20 [History] Past Medical History HEENT History: Reports: None Cardiovascular History: Reports: Hypertension Respiratory History: Reports: None Gastrointestinal History: Reports: None Genitourinary History: Reports: None 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 TYPEWRITER MECHANIC History: 2 Musculoskeletal History: Reports: Amputation Other Musculoskeletal History: Left Below the knee Neurological History: Reports: Other (See Below) Other Neuro History: hx Mares's palsey Psychiatric History: Reports: None Endocrine/Metabolic History: Reports: Diabetes, Type II, Obesity/BMI 30+ Hematologic History: Reports: None Immunologic History: Reports: None Oncologic (Cancer) History: Reports: None Dermatologic History: Reports: None - Infectious Disease History Infectious Disease History: Reports: Chicken Pox - Past Surgical History Head Surgeries/Procedures: Reports: None Musculoskeletal Surgical History: Reports: Amputation Other Musculoskeletal Surgeries/Procedures:: Left BKA Social & Family History - Family History Family Medical History: No Pertinent Family History - Tobacco Use Tobacco Use Status *Q: Current Every Day Tobacco User Years of Tobacco use: 30 Packs/Tins Daily: 0.5 - Caffeine Use Caffeine Use: Reports: Coffee - Recreational Drug Use Recreational Drug Use: No - Living Situation & Occupation Living situation: Reports: with Family Occupation: Employed Review of Systems - Review of Systems Review Of Systems: Comprehensive ROS is negative, except as noted in HPI. ED EXAM, GENERAL - Physical Exam Exam: See Below Exam Limited By: No Limitations General Appearance: Alert, No Apparent Distress Eye Exam: Bilateral Eye: PERRL Ears: Normal External Exam Throat/Mouth: Normal Inspection, Normal Lips Head: Atraumatic Neck: Normal Inspection Respiratory/Chest: No Respiratory Distress, Lungs Clear, Normal Breath Sounds Cardiovascular: Regular Rate, Rhythm GI/Abdominal: Soft, Non-Tender Extremities: Other (Tenderness over the patellar tendon, medial and lateral joint lines ). No: Joint Swelling Departure - Departure Time of Disposition: 17:26 Disposition: Home, Self-Care 01 Clinical Impression: Knee contusion Qualifiers: Encounter type: initial encounter Laterality: left Qualified Code(s): S80.02XA - Contusion of left knee, initial encounter - Discharge Information *PRESCRIPTION DRUG MONITORING PROGRAM REVIEWED*: Not Applicable *COPY OF PRESCRIPTION DRUG MONITORING REPORT IN PATIENT MOHINI: Not Applicable Instructions: Contusion, [id number] Referrals: PCP,None [Primary Care Provider] - Additional Instructions: Advised Diana that she has a knee sprain and this should improve with conservative management, can continue to take tylenol and ibuprofen as recommended on the bottle. Bruising and swelling to the area may occur over the next 24-48 hours which is normal, can use ice and elevate the knee to help. X-ray of the left knee today was not significant for any fractures. Sepsis Event Note (ED) - Evaluation Sepsis Screening Result: No Definite Risk <Monica Bowie - Last Filed: 06/29/20 13:42> Course - Vital Signs Last Recorded V/S: Last Vital Signs Temp 98.3 F 06/28/20 15:43 Pulse 96 06/28/20 15:43 Resp 18 06/28/20 15:43 BP 162/63 H 06/28/20 15:43 Pulse Ox 95 06/28/20 15:43 - Re-Assessments/Exams Free Text/Narrative Re-Assessment/Exam: I have examined the patient. I have discussed findings and treatment plan with resident. I agree with assessment plan and documentation. Departure - Departure Condition: Good
== END 2020-06-28 17:45 | disposition home or self-care (01) ==
LOC: DL.ED 15:22
DX: S80.02XA Contusion of left knee, initial encounter (principal); E11.9 Type 2 diabetes mellitus without complications; I10 Essential (primary) hypertension; E66.9 Obesity, unspecified; Z88.1 Allergy status to other antibiotic agents; Z68.31 Body mass index [BMI] 31.0-31.9, adult; Z79.84 Long term (current) use of oral hypoglycemic drugs; Z72.0 Tobacco use; W18.30XA Fall on same level, unspecified, initial encounter
CPT/HCPCS: 73562-LT; 99283

== ENCOUNTER 2021-01-31 18:03 | Emergency (ER) | payer MEDICARE, MEDICAID | END 2021-01-31 21:08 | disposition left against medical advice (07) | LOC: DL.ED 18:03 | DX: K25.9 Gastric ulcer, unspecified as acute or chronic, without hemorrhage or perforation (principal); Z53.21 Procedure and treatment not carried out due to patient leaving prior to being seen by health care provider ==

== ENCOUNTER 2021-04-28 17:26 | Emergency (ER) | payer MEDICARE, MEDICAID ==
[2021-04-28 17:40] VITALS: BP 173/64; PULSE 98
== END 2021-04-28 18:24 | disposition left against medical advice (07) ==
LOC: DL.ED 17:26
DX: K25.9 Gastric ulcer, unspecified as acute or chronic, without hemorrhage or perforation (principal); Z53.21 Procedure and treatment not carried out due to patient leaving prior to being seen by health care provider

== ENCOUNTER 2021-09-20 16:20 | Emergency (ER) | payer MEDICARE, MEDICAID ==
[2021-09-20 18:12] VITALS: BP 153/81; PULSE 95
== END 2021-09-20 19:00 | disposition left against medical advice (07) ==
LOC: DL.ED 16:20
DX: M79.661 Pain in right lower leg (principal); R20.2 Paresthesia of skin; I10 Essential (primary) hypertension; E11.9 Type 2 diabetes mellitus without complications; E66.9 Obesity, unspecified; Z68.30 Body mass index [BMI] 30.0-30.9, adult; Z88.1 Allergy status to other antibiotic agents; Z88.8 Allergy status to other drugs, medicaments and biological substances; Z79.899 Other long term (current) drug therapy
CPT/HCPCS: 99283

== ENCOUNTER 2022-01-24 13:44 | Emergency (ER) | payer MEDICARE, MEDICAID | END 2022-01-24 14:09 | disposition left against medical advice (07) | LOC: DL.ED 13:44 | DX: Z53.21 Procedure and treatment not carried out due to patient leaving prior to being seen by health care provider (principal) ==

== ENCOUNTER 2022-03-16 15:31 | Emergency (ER) | payer MEDICARE, MEDICAID ==
[2022-03-16] MEDS ORDERED: Doxycycline Monohydrate 100 MG Cap PO ONE (16:40)
[2022-03-16] MEDS ORDERED: Clindamycin HCl 150 MG Cap PO ONE (16:40)
[2022-03-16] MEDS ORDERED: Bacitracin Oint 1 GM U/D Packet TOP ONE (16:41)
[2022-03-16 16:42] VITALS: BP 144/65; PULSE 92
[2022-03-16] MEDS ORDERED: Bacitracin Oint 1 GM U/D Packet ONE (16:42)
== END 2022-03-16 17:03 | disposition home or self-care (01) ==
LOC: DL.ED 15:31
DX: L98.499 Non-pressure chronic ulcer of skin of other sites with unspecified severity (principal); I10 Essential (primary) hypertension; B35.4 Tinea corporis; E11.9 Type 2 diabetes mellitus without complications; E66.9 Obesity, unspecified; Z68.36 Body mass index [BMI] 36.0-36.9, adult; Z88.1 Allergy status to other antibiotic agents; Z79.899 Other long term (current) drug therapy
CPT/HCPCS: 87070; 87077; 87186; 99284; A9270

== ENCOUNTER 2022-04-02 15:32 | Emergency (ER) | payer MEDICARE, MEDICAID ==
[2022-04-02 15:53] VITALS: BP 158/72; PULSE 92
[2022-04-02] MEDS ORDERED: Sodium Chloride 0.9% 10 ML Syringe FLUSH PRN (15:57)
[2022-04-02] MEDS ORDERED: methylPREDNISolone Sodium Succinate 125 MG/2 ML SDV IVPUSH ONE (16:47)
[2022-04-02 17:12] LABS: ANION GAP 13.3 mEq/L (7-13); CHLORIDE,CL 108 mmol/L (98-107); SODIUM,NA 144 mmol/L (136-145)
[2022-04-02 17:13] LABS: ESTIMATED GFR 100 mL/min (>=60)
[2022-04-02] MEDS ORDERED: Ketorolac 30 MG/ML SDV IVPUSH ONE (17:20)
== END 2022-04-02 18:17 | disposition home or self-care (01) ==
LOC: DL.ED 15:32
DX: T81.30XA Disruption of wound, unspecified, initial encounter (principal); M25.561 Pain in right knee; G89.29 Other chronic pain; I10 Essential (primary) hypertension; E11.9 Type 2 diabetes mellitus without complications; E66.9 Obesity, unspecified; Z88.1 Allergy status to other antibiotic agents; Z88.0 Allergy status to penicillin; Z88.8 Allergy status to other drugs, medicaments and biological substances; Z79.899 Other long term (current) drug therapy; Z68.41 Body mass index [BMI] 40.0-44.9, adult
CPT/HCPCS: 36415; 73562; 80053; 83605; 84145; 84484; 85025; 85651; 86140; 87070; 96374; 99284; J1885; J3490

== ENCOUNTER 2022-09-03 12:35 | Emergency (ER) | payer MEDICARE, MEDICAID ==
[~2022-09-03 12:35] MED LIST: GI Cocktail Oral Solution 30 ML PO ONE
[2022-09-03] MEDS ORDERED: Famotidine 20 MG Tab PO ONE (12:37)
[2022-09-03 12:54] VITALS: PULSE 88
[2022-09-03 12:57] VITALS: BP 171/71
== END 2022-09-03 13:00 | disposition home or self-care (01) ==
LOC: DL.ED 12:35
DX: K20.90 Esophagitis, unspecified without bleeding (principal); I10 Essential (primary) hypertension; E11.9 Type 2 diabetes mellitus without complications; E66.9 Obesity, unspecified; Z79.899 Other long term (current) drug therapy; Z88.1 Allergy status to other antibiotic agents; Z88.0 Allergy status to penicillin; Z88.8 Allergy status to other drugs, medicaments and biological substances; Z68.41 Body mass index [BMI] 40.0-44.9, adult
CPT/HCPCS: 99284; A9270-GY

== ENCOUNTER 2023-02-12 18:09 | Emergency (ER) | payer MEDICARE, MEDICAID ==
[2023-02-12] MEDS ORDERED: Sodium Chloride 0.9% 10 ML Syringe FLUSH PRN (19:08)
[2023-02-12] MEDS ORDERED: Ketorolac 30 MG/ML SDV IVPUSH ONE (19:09)
[2023-02-12 19:24] LABS: BASOPHILS PERCENT AUTO 0.2 % (0.0-1.0); HEMOGLOBIN 11.7 g/dL (12.0-16.0); LYMPHOCYTES PERCENT AUTO 17.2 % (20.5-50.1); MEAN CORPUSCULAR HEMOGLOBIN 29.4 pg (27.0-34.0); MEAN CORPUSCULAR HGB CONC 31.6 g/dL (33.0-35.0); MONOCYTES PERCENT AUTO 7.6 % (2-8); PLATELET COUNT,PLT 271 10^3/uL (150-450); RED BLOOD CELL COUNT 3.98 10^6/uL (4.2-5.4)
[2023-02-12 19:37] LABS: ANION GAP 16.3 mEq/L (7-13); CALCIUM 8.9 mg/dL (8.5-10.1); CREATININE 0.75 mg/dL (0.55-1.02); EST CRCL DRUG DOSING (CG) 66.24 mL/min; POTASSIUM,K 4.3 mmol/L (3.5-5.1)
[2023-02-12] MEDS ORDERED: Cephalexin 500 MG Cap PO ONE (20:05)
[2023-02-12] MEDS ORDERED: Acetaminophen/HYDROcodone 325-10 MG Tab PO ONE (20:05)
[2023-02-12] MEDS ORDERED: Take Home: Acetaminophen/HYDROcodone 325-5 MG, 5 Tab Pack PO ONE (20:06)
[2023-02-12] MEDS ORDERED: Take Home: Cephalexin 500 MG Cap, 6 Cap Pack PO ONE (20:06)
[2023-02-12 20:31] VITALS: BP 121/87; PULSE 99
== END 2023-02-12 20:41 | disposition home or self-care (01) ==
LOC: DL.ED 18:09
DX: L03.115 Cellulitis of right lower limb (principal); S80.02XA Contusion of left knee, initial encounter; M25.461 Effusion, right knee; E11.9 Type 2 diabetes mellitus without complications; W01.0XXA Fall on same level from slipping, tripping and stumbling without subsequent striking against object, initial encounter; Y92.481 Parking lot as the place of occurrence of the external cause; Z88.0 Allergy status to penicillin; Z88.1 Allergy status to other antibiotic agents; Z79.84 Long term (current) use of oral hypoglycemic drugs; Z79.899 Other long term (current) drug therapy
CPT/HCPCS: 36415; 73560-RT; 80048; 85025; 96374; 99284; 99284-25; A9270-GY; J1885; J3490

== ENCOUNTER 2023-06-27 14:10 | Emergency (ER) | payer MEDICARE, MEDICAID ==
[2023-06-27 15:23] LABS: BASOPHILS PERCENT AUTO 0.2 % (0.0-1.0); EOSINOPHILS PERCENT AUTO 0.6 % (1.0-3.0); HEMATOCRIT 34.9 % (37.0-47.0); HEMOGLOBIN 11.3 g/dL (12.0-16.0); LYMPHOCYTES PERCENT AUTO 19.9 % (20.5-50.1); MEAN CORPUSCULAR HEMOGLOBIN 28.6 pg (27.0-34.0); MEAN CORPUSCULAR HGB CONC 32.4 g/dL (33.0-35.0); MEAN CORPUSCULAR VOLUME 88.4 fL (80-100); MONOCYTES PERCENT AUTO 6.3 % (2-8); PLATELET COUNT,PLT 357 10^3/uL (150-450); RED BLOOD CELL COUNT 3.95 10^6/uL (4.2-5.4); WHITE BLOOD CELL COUNT,WBC 12.8 10^3/uL (5.0-10.0)
[2023-06-27 15:48] LABS: A/G RATIO 0.76; ALANINE AMINOTRANSFERASE,ALT 15 U/L (14-59); ALBUMIN 3.1 g/dL (3.4-5.0); ALKALINE PHOSPHATASE 140 U/L (46-116); ANION GAP 12.6 mEq/L (7-13); ASPARTATE AMNIOTRANSFERASE,AST 12 U/L (15-37); BILIRUBIN TOTAL 0.4 mg/dL (0.2-1.0); BLOOD UREA NITROGEN,BUN 13 mg/dL (7-18); BUN/CREATININE RATIO 17.1 (No establ ref range); CALCIUM 8.7 mg/dL (8.5-10.1); CARBON DIOXIDE,CO2 29 mmol/L (21-32); CHLORIDE,CL 95 mmol/L (98-107); CREATININE 0.76 mg/dL (0.55-1.02); ESTIMATED GFR 92 mL/min (>=60); GLUCOSE RANDOM 103 mg/dL (70-99); POTASSIUM,K 2.6 mmol/L (3.5-5.1); PROTEIN TOTAL,TP 7.2 g/dL (6.4-8.2); SODIUM,NA 134 mmol/L (136-145)
[2023-06-27 15:50] LABS: INR 0.9 (0.9-1.2); PROTHROMBIN TIME 9.2 SEC (9.0-12.0); PTT,PARTIAL THROMBOPLSTIN TIME 26.3 SEC (22.0-34.0)
[2023-06-27 15:53] LABS: LACTIC ACID 1.3 mmol/L (0.4-2.0)
[2023-06-27] MEDS: Sodium Chloride 0.9% 1,000 ML IV ONE ×2 (15:57→16:33)
[2023-06-27] MEDS: Potassium Chloride 10 MEQ Tab.ER PO ONE (16:34)
[2023-06-27] MEDS: Iopamidol 755 Mg/ML 100 ML Bottle IVPUSH ONE (17:03)
[2023-06-27] MEDS: Potassium Chloride 20 MEQ in Premix Bag 1 BAG IV ONE (17:39)
[2023-06-27] MEDS: Take Home: Cephalexin 500 MG Cap, 6 Cap Pack PO ONE (19:57)
== END 2023-06-27 20:00 | disposition home health service (06) ==
LOC: DL.ED 14:10
DX: S92.321A Displaced fracture of second metatarsal bone, right foot, initial encounter for closed fracture (principal); S92.331A Displaced fracture of third metatarsal bone, right foot, initial encounter for closed fracture; E11.51 Type 2 diabetes mellitus with diabetic peripheral angiopathy without gangrene; E11.621 Type 2 diabetes mellitus with foot ulcer; L97.519 Non-pressure chronic ulcer of other part of right foot with unspecified severity; F17.210 Nicotine dependence, cigarettes, uncomplicated; Z88.1 Allergy status to other antibiotic agents; Z88.8 Allergy status to other drugs, medicaments and biological substances; Z79.899 Other long term (current) drug therapy; Z89.512 Acquired absence of left leg below knee; Z86.19 Personal history of other infectious and parasitic diseases; Z90.49 Acquired absence of other specified parts of digestive tract; X58.XXXA Exposure to other specified factors, initial encounter
CPT/HCPCS: 36415; 73630-RT; 73706-RT; 80053; 83605; 83735; 85025; 85610; 85730; 93005; 93010; 96361; 96365; 96366; 99284-25; 99285; A9270-GY; J3480; J7030; Q9967

== ENCOUNTER 2024-04-06 17:43 | Emergency (ER) | payer MEDICARE, MEDICAID ==
[2024-04-06] MEDS: Mupirocin Oint 22 GM Tube TOP ONE (18:05)
[2024-04-06] MEDS: Ketorolac 30 MG/ML SDV IM ONE (18:05)
[2024-04-06 18:12] VITALS: BP 144/48; PULSE 106
== END 2024-04-06 19:20 | disposition home or self-care (01) ==
LOC: DL.ED 17:43
DX: S81.802A Unspecified open wound, left lower leg, initial encounter (principal); L08.9 Local infection of the skin and subcutaneous tissue, unspecified; J45.909 Unspecified asthma, uncomplicated; E11.9 Type 2 diabetes mellitus without complications; Z88.1 Allergy status to other antibiotic agents; Z88.8 Allergy status to other drugs, medicaments and biological substances; Z79.899 Other long term (current) drug therapy; Z90.49 Acquired absence of other specified parts of digestive tract; X58.XXXA Exposure to other specified factors, initial encounter
CPT/HCPCS: 73140; 96372; 99283; A9270; J1885

== ENCOUNTER 2024-08-18 05:12 | Day surgery (SDC) | payer MEDICARE, MEDICAID ==
[2024-08-18] MEDS ORDERED: Midazolam 1 MG/ML 2 ML SDV ONE (06:03)
[2024-08-18] MEDS ORDERED: fentaNYL 100 MCG/2 ML SDV ONE (06:03)
[2024-08-18] MEDS ORDERED: Midazolam 1 MG/ML 2 ML SDV IV ONE (06:03)
[2024-08-18] MEDS ORDERED: fentaNYL 100 MCG/2 ML SDV IV ONE (06:03)
[2024-08-18] MEDS: Lactated Ringers 1,000 ML IV SCH (06:32)
[2024-08-18] MEDS: fentaNYL 100 MCG/2 ML SDV IV ONE ×2 (07:01)
[2024-08-18] MEDS: Midazolam 1 MG/ML 2 ML SDV IV ONE ×2 (07:02)
[2024-08-18 08:21] VITALS: BP 102/54; PULSE 82
== END 2024-08-18 08:36 | disposition home or self-care (01) ==
LOC: DL.ENDO 05:12
PROVIDERS: ATTEND Internal Medicine Gastroenterology
DX: K29.50 Unspecified chronic gastritis without bleeding (principal); K31.A0 Gastric intestinal metaplasia, unspecified; B96.81 Helicobacter pylori [H. pylori] as the cause of diseases classified elsewhere; I10 Essential (primary) hypertension; E11.51 Type 2 diabetes mellitus with diabetic peripheral angiopathy without gangrene; E11.40 Type 2 diabetes mellitus with diabetic neuropathy, unspecified; J45.909 Unspecified asthma, uncomplicated
CPT/HCPCS: 88305; J2250; J3010; J7120

== ENCOUNTER 2024-09-05 07:23 | Day surgery (SDC) | payer MEDICARE, MEDICAID ==
[~2024-09-05 07:23] MED LIST changes: +Dextrose 5%-0.45% NaCl 1,000 ML IV SCH; -GI Cocktail Oral Solution 30 ML PO ONE
[2024-09-05] MEDS ORDERED: Propofol 200 MG/20 ML SDV ONE (08:03)
[2024-09-05] MEDS: Lactated Ringers 1,000 ML IV SCH (08:05)
[2024-09-05 09:57] VITALS: BP 125/57; PULSE 97
== END 2024-09-05 09:43 | disposition home or self-care (01) ==
LOC: DL.ENDO 07:23
PROVIDERS: ATTEND Internal Medicine Gastroenterology
DX: Z12.11 Encounter for screening for malignant neoplasm of colon (principal)
CPT/HCPCS: G0121; J7120

== ENCOUNTER 2024-12-06 18:58 | Emergency (ER) | payer MEDICARE, MEDICAID ==
[2024-12-06 19:41] LABS: BASOPHILS PERCENT AUTO 0.2 % (0.0-1.0); EOSINOPHILS PERCENT AUTO 1.2 % (1.0-3.0); LYMPHOCYTES PERCENT AUTO 30.1 % (20.5-50.1); MONOCYTES PERCENT AUTO 9.1 % (2-8); NEUTROPHILS PERCENT AUTO 59.4 % (42.2-75.2); PLATELET COUNT,PLT 310 10^3/uL (150-450); RED BLOOD CELL COUNT 3.93 10^6/uL (4.2-5.4); WHITE BLOOD CELL COUNT,WBC 9.2 10^3/uL (5.0-10.0)
[2024-12-06 20:03] LABS: A/G RATIO 0.9; ALANINE AMINOTRANSFERASE,ALT 14.0 U/L (14-59); ASPARTATE AMNIOTRANSFERASE,AST 13.0 U/L (15-37); BILIRUBIN TOTAL 0.5 mg/dL (0.2-1.0); BLOOD UREA NITROGEN,BUN 10.0 mg/dL (7-18); CARBON DIOXIDE,CO2 27.0 mmol/L (21-32); CHLORIDE,CL 96.0 mmol/L (98-107); CREATININE 0.66 mg/dL (0.55-1.02); EST CRCL DRUG DOSING (CG) 80.23 mL/min; ESTIMATED GFR 102.0 mL/min (>=60); GLUCOSE RANDOM 127.0 mg/dL (70-99); LACTIC ACID 1.4 mmol/L (0.4-2.0); POTASSIUM,K 3.2 mmol/L (3.5-5.1); PROTEIN TOTAL,TP 7.3 g/dL (6.4-8.2); SODIUM,NA 132.0 mmol/L (136-145)
[2024-12-06] MEDS: Potassium Chloride 10 MEQ Tab.ER PO ONE (20:28)
[2024-12-06 21:14] VITALS: BP 115/100; PULSE 89
== END 2024-12-06 21:09 | disposition home or self-care (01) ==
LOC: DL.ED 18:58
DX: E87.6 Hypokalemia (principal); E78.00 Pure hypercholesterolemia, unspecified; I10 Essential (primary) hypertension; J45.909 Unspecified asthma, uncomplicated; E11.40 Type 2 diabetes mellitus with diabetic neuropathy, unspecified; Z88.1 Allergy status to other antibiotic agents; Z88.8 Allergy status to other drugs, medicaments and biological substances; Z79.899 Other long term (current) drug therapy; Z79.82 Long term (current) use of aspirin
CPT/HCPCS: 36415; 71045; 80053; 83605; 83735; 83880; 84484; 85025; 85379; 93005; 99285; A9270

== ENCOUNTER 2025-01-30 22:54 | Emergency (ER) | payer MEDICAID, MEDICARE ==
[2025-01-30] MEDS: Acetaminophen/HYDROcodone 325-5 MG Tab PO ONE (23:17)
[2025-01-31 00:25] VITALS: BP 144/76; PULSE 67
[2025-01-31] MEDS: Take Home: Acetaminophen/HYDROcodone 325-5 MG, 5 Tab Pack PO ONE (00:27)
== END 2025-01-31 00:43 | disposition home or self-care (01) ==
LOC: DL.ED 22:54
DX: S42.292A Other displaced fracture of upper end of left humerus, initial encounter for closed fracture (principal); I10 Essential (primary) hypertension; E78.00 Pure hypercholesterolemia, unspecified; J45.909 Unspecified asthma, uncomplicated; E11.40 Type 2 diabetes mellitus with diabetic neuropathy, unspecified; M19.90 Unspecified osteoarthritis, unspecified site; Z88.0 Allergy status to penicillin; Z88.1 Allergy status to other antibiotic agents; Z90.49 Acquired absence of other specified parts of digestive tract; Z79.82 Long term (current) use of aspirin; Z79.899 Other long term (current) drug therapy; Z79.51 Long term (current) use of inhaled steroids; Z95.828 Presence of other vascular implants and grafts; W18.09XA Striking against other object with subsequent fall, initial encounter
CPT/HCPCS: 73060; 99284; A9270